=== PATIENT | female | born 1965 | race Caucasian/White ===

== ENCOUNTER 2017-09-27 15:22 | Emergency (ER) | payer SELFPAY ==
[2017-09-27 15:36] VITALS: BP 115/82; PULSE 98; RESP 18; TEMP 36.9; O2SAT 94; BMI 23.6
[2017-09-27 15:55] LABS: UTC Influenza A Antigen Negative (Negative); UTC Influenza B Antigen Negative (Negative)
--- NOTE | 2017-09-27 16:00 | HMH.EDUTC ---
[facility] [place] Clinical Impression: Tobacco abuse Acute bronchitis Qualifiers: Bronchitis organism: unspecified organism Qualified Code(s): J20.9 - Acute bronchitis, unspecified Acute conjunctivitis, bilateral Qualifiers: Acute conjunctivitis type: unspecified Qualified Code(s): H10.33 - Unspecified acute conjunctivitis, bilateral Right otitis media Qualifiers: Otitis media type: unspecified Qualified Code(s): H66.91 - Otitis media, unspecified, right ear Disposition: Home, Self-Care Condition on Discharge: Good Instructions: DI for Conjunctivitis, DI for Acute Bronchitis, DI for Otitis Media (Middle Ear Infection)-Child, How to Quit Tobacco Products Additional Instructions: Bronchitis * STOP SMOKING!!!! * start antibiotic today. Be sure to complete entire prescription even if feeling better. * Monitor Temp. Tylenol every 4 hours as needed no more then 5 times a day or 4000mg in 24 hours and/or ibuprofen every 6 hours as needed no more then 3200mg in 24 hours (as long as your primary care doctor has told you that it is ok to take both) for fever/aches/pain. ER if fever no less than 101 despite tylenol and ibuprofen * humidifier/vaporizer/hot steamy shower * Inhaler every 4-6 hours as needed like we discussed. If unsure how to use it, ask pharmacist to demonstrate how. Should help open airways and improve cough, wheezing, shortness of breath. * Mucinex during the day for your cough and cough suppressant only at night. Be sure to drink lots of water. Insurance may not cover a prescription of mucinex. Might be cheaper to get 400mg tablets and take 2 tablets morning, midday and evening all with lots of water. * Promethazine DM cough syrup will cause drowsiness. Use it only at night. No driving, operating machinery or caring for small children after taking it. * Start steroid today. Helps with inflammation therefore, cough and wheezing. Follow directions on package. Rvwd side effects. Pt reports they have taken them before. * If not improving, you will need a CXR at that points so follow up VERY important for new or worsening symptoms Follow up IMMEDIATELY for new or worsening symptoms OR no noticeable improvement over the next 48-72 hours. 911 for difficulty breathing. Eyes * Start antibiotic drops MONIQUE and use them as ordered at least 48 hours after symptoms resolve. As we discussed, if this is viral, they will not help. * Warm compresses * conjunctivitis (pink eye) can be contagious and spreads easily. Try to avoid touching the eye and if so, wash hands immediately. Frequently disinfecting surfaces the patient touches will help decrease the spread of conjunctivitis. * If this is bacterial, you should notice improvement typically within 24 hours but at least within 48 hours after starting antibiotic. If not, you need to follow up with your family doctor or your eye care provider, Dr. rincon. Ear infection * Start antibiotic MONIQUE (same one for your chest) and be sure to take as ordered for the FULL length of time although you should start to feel better in 24-48 hours. * Monitor Temp. Tylenol every 4 hours as needed no more then 5 times a day or 4000mg in 24 hours and/or ibuprofen every 6 hours as needed no more then 3200mg in 24 hours (as long as your primary care doctor has told you that it is ok to take both) for fever/aches/pain. ER if fever no less than 101 despite Tylenol and ibuprofen * Encourage fluids, water, Gatorade, PowerAde, pedialyte if infant/toddler/child * warm compress often helps when placed over ear * sleep elevated * Immediately for new or worsening symptoms, no noticeable improvement in 48-72 hours AND in 10-14 days to ensure ears are back to baseline. Be sure to return to [facility] or ER or primary care as we discussed above. Prescriptions: Albuterol Sulfate [Albuterol HFA Inhaler] 1 - 2 puffs IH Q4-6H PRN #1 inh PRN Reason: Shortness Of Breath Or Wheezing Azithromycin [Z-Devin 250mg Tab] 250 mg PO UD DOSE PK #6 t
--- NOTE | 2017-09-27 16:09 | ED_ITS ---
[facility] – [place] Disposition Clinical Impression: Tobacco abuse Acute bronchitis Qualifiers: Bronchitis organism: unspecified organism Qualified Code(s): J20.9 - Acute bronchitis, unspecified Acute conjunctivitis, bilateral Qualifiers: Acute conjunctivitis type: unspecified Qualified Code(s): H10.33 - Unspecified acute conjunctivitis, bilateral Right otitis media Qualifiers: Otitis media type: unspecified Qualified Code(s): H66.91 - Otitis media, unspecified, right ear Disposition: Home, Self-Care Condition on Discharge: Good Instructions: DI for Conjunctivitis, DI for Acute Bronchitis, DI for Otitis Media (Middle Ear Infection)-Child, How to Quit Tobacco Products Additional Instructions: Bronchitis * STOP SMOKING!!!! * start antibiotic today. Be sure to complete entire prescription even if feeling better. * Monitor Temp. Tylenol every 4 hours as needed no more then 5 times a day or 4000mg in 24 hours and/or ibuprofen every 6 hours as needed no more then 3200mg in 24 hours (as long as your primary care doctor has told you that it is ok to take both) for fever/aches/pain. ER if fever no less than 101 despite tylenol and ibuprofen * humidifier/vaporizer/hot steamy shower * Inhaler every 4-6 hours as needed like we discussed. If unsure how to use it, ask pharmacist to demonstrate how. Should help open airways and improve cough, wheezing, shortness of breath. * Mucinex during the day for your cough and cough suppressant only at night. Be sure to drink lots of water. Insurance may not cover a prescription of mucinex. Might be cheaper to get 400mg tablets and take 2 tablets morning, midday and evening all with lots of water. * Promethazine DM cough syrup will cause drowsiness. Use it only at night. No driving, operating machinery or caring for small children after taking it. * Start steroid today. Helps with inflammation therefore, cough and wheezing. Follow directions on package. Rvwd side effects. Pt reports they have taken them before. * If not improving, you will need a CXR at that points so follow up VERY important for new or worsening symptoms Follow up IMMEDIATELY for new or worsening symptoms OR no noticeable improvement over the next 48-72 hours. 911 for difficulty breathing. Eyes * Start antibiotic drops MONIQUE and use them as ordered at least 48 hours after symptoms resolve. As we discussed, if this is viral, they will not help. * Warm compresses * conjunctivitis (pink eye) can be contagious and spreads easily. Try to avoid touching the eye and if so, wash hands immediately. Frequently disinfecting surfaces the patient touches will help decrease the spread of conjunctivitis. * If this is bacterial, you should notice improvement typically within 24 hours but at least within 48 hours after starting antibiotic. If not, you need to follow up with your family doctor or your eye care provider, Dr. rincon. Ear infection * Start antibiotic MONIQUE (same one for your chest) and be sure to take as ordered for the FULL length of time although you should start to feel better in 24-48 hours. * Monitor Temp. Tylenol every 4 hours as needed no more then 5 times a day or 4000mg in 24 hours and/or ibuprofen every 6 hours as needed no more then 3200mg in 24 hours (as long as your primary care doctor has told you that it is ok to take both) for fever/aches/pain. ER if fever no less than 101 despite Tylenol and ibuprofen * Encourage fluids, water, Gatorade, PowerAde, pedialyte if infant/toddler/ child * warm compress often helps when placed over ear * sleep elevated * Immediately for new or worsening symptoms, no noticeable improvement in 48-72 hours AND in 10-14 days to en
== END 2017-09-27 16:32 | disposition home or self-care (01) ==
PROVIDERS: Emergency Provider Nurse Practitioner Family
DX: J20.9 Acute bronchitis, unspecified (principal); H10.33 Unspecified acute conjunctivitis, bilateral; H66.91 Otitis media, unspecified, right ear; J45.909 Unspecified asthma, uncomplicated; Z90.49 Acquired absence of other specified parts of digestive tract; F17.210 Nicotine dependence, cigarettes, uncomplicated
CPT/HCPCS: 87804; 99202

== ENCOUNTER 2020-08-31 13:37 | Emergency (ER) | payer MEDICAID, SELFPAY ==
[2020-08-31 13:49] VITALS: BP 144/90; PULSE 84; RESP 20; TEMP 36.6; O2SAT 98; BMI 24.5
--- NOTE | 2020-08-31 13:54 | HMH.EDUTC ---
[facility] – [place] Disposition Clinical Impression: Exposure to COVID-19 virus Disposition: Home, Self-Care Condition on Discharge: Good Instructions: Preventing the Spread of Coronavirus Discharge Instructions Additional Instructions: You have been tested for COVID19. Please isolate yourself as if you are positive until test results received. Referrals: Hamilton Aquino MD [Primary Care Provider] - Time of Disposition: 14:01 Medical Decision Making - Quinn Inquiry Pt receiving controlled substance: No Vital Signs: 08/31/20 13:49 Temperature 97.8 F Temperature Source Oral Pulse Rate [Radial] 84 Respiratory Rate 20 Blood Pressure [Right Arm] 144/90 H Blood Pressure Mean [Right Arm] 108 Blood Pressure Source [Right Arm] Automatic Cuff Blood Pressure Position [Right Arm] Sitting 02 Sat by Pulse Oximetry 98 Oxygen Delivery Method Room Air Orders (Tests/Meds): ORDERS Category Date Time Status Covid-19 Nasal PCR ([facility]) Routine Lab 08/31/20 13:41 Ordered [facility] [place] HPI - General Stated complaint: COVID TEST Time Seen by Provider: 08/31/20 13:54 Mode of Arrival: Ambulatory Source of Information: Patient Limitations: No Limitations Description of Symptoms (Recalled from Triage Doc. by RN): covid test HEENT Symptoms (Recalled from RN notes): No Resp Symptoms (Recalled from RN notes): No Skin Symptoms (Recalled from RN notes): No MS Symptoms (Recalled from RN notes): No Functional Status (Recalled from RN notes): wnl - History of Present Illness Provider Complaint: Patient is requesting COVID19 testing. She has not been directly exposed - her son in law has it and she has been around her daughter. She works at [employer] and wants to be sure. Onset (ago): day(s) (3) Relieving factors: none Exacerbating factors: none Associated symptoms: denies other symptoms Treatments prior to arrival: none - Related Data Previous Rx's Medication Instructions Recorded Doxycycline Hyclate [Doxycycline 100 mg PO Q12 10 Days #20 tab 10/26/19 Hyclate 100mg Tablet] Guaifenesin/Dextromethorphan 1 tab PO BID 10 Days #20 tab 10/26/19 [Mucinex Dm ER 1,200-60 mg Tab] predniSONE [Prednisone 20mg 20 mg PO BID 5 Days #10 tab 10/26/19 Tab] albuterol sulfate 90 mcg/actuation 2 puff INHALATION Q6HP PRN #1 inh 02/01/20 aerosol inhaler Allergies Allergy/AdvReac Type Severity Reaction Status Date / Time No Known Allergies Allergy Verified 09/27/17 15:40 - Worker's Comp Is this a Worker's Comp case?: No [facility] History - Hepatitis A Screen Drug use history?: No High risk sexual behaviors?: No History of sexually transmitted infection?: No Currently employed?: No Childcare worker?: No Do you have indoor plumbing?: Yes Do you have electricity?: Yes Attestation statement:: This patient has been screened for Hepatitis A risk factors. I have reviewed the patient's past medical history: Yes Medical History: Reports:: Asthma Denies:: Diabetes Mellitus Type 1, Diabetes Mellitus Type 2, Hypertension Other Surgeries: Yes: Tubal Ligation, Other (cholecystectomy) - Social History Smoking Status: Current every day smoker Tobacco Type: cigarettes # Packs/Day (cigarettes): 1 Alcohol Intake: never Occupational Status: other ROS Obtained: Yes All systems reviewed & no additional complaints Physical Exam - General General appearance: alert, in no apparent distress - Head Head exam: normocephalic - Eye Eye exam: Present: PERRL - ENT ENT exam: Present: normal oropharynx - Neck Neck exam: Present: full ROM - Chest Chest inspection: Present: symmetric chest wall rise - Respiratory Respiratory exam: Present: normal lung sounds bilaterally - Cardiovascular Cardiovascular exam: Present: regular rate, normal rhythm - Neurological Exam Neurological exam: Present: alert, oriented X3 - Psychiatric Psychiatric exam: Present: normal affect, normal mood - Skin Skin exam: Present: warm, dry, intac
[2020-08-31 14:23] VITALS: BP 144/90; PULSE 84; RESP 20; TEMP 36.6; O2SAT 98
== END 2020-08-31 14:23 | disposition home or self-care (01) ==
PROVIDERS: Emergency Provider Physician Assistant; PCP Emergency Medicine
DX: Z20.828 Contact with and (suspected) exposure to other viral communicable diseases (principal); J45.909 Unspecified asthma, uncomplicated; F17.210 Nicotine dependence, cigarettes, uncomplicated
CPT/HCPCS: 99201; U0003

== ENCOUNTER 2022-02-21 07:44 | Emergency (ER) | payer SELFPAY ==
[2022-02-21] VITALS (8 sets, daily range): BP systolic 142–176; BP diastolic 92–103; PULSE 74–100; RESP 13–24; TEMP 36.5–37; O2SAT 92–99; BMI 22.6
--- NOTE | 2022-02-21 07:53 | ECG_ITS ---
APPROVED REPORT Exam: Resting ECG HR:93 bpm ECG Measurements Heart Rate 93 AXES OR 175 P 81 QRSd 80 QRS -54 QT 326 T 68 QTc 377 Conclusion SINUS RHYTHM POSSIBLE LEFT ATRIAL ENLARGEMENT [-0.1mV P-WAVE IN V1/V2] LEFT AXIS DEVIATION [QRS AXIS < -30] ABNORMAL ECG UNCONFIRMED REPORT Electronically signed by : Jaron Acosta MD 02/21/2022 18:41:48
--- NOTE | 2022-02-21 07:56 | XR_ITS ---
PROCEDURE INFORMATION: Exam: XR Chest Exam date and time: 02/21/2022 8:13 AM Age: 56 years old Clinical indication: Shortness of breath; Additional info: SOB TECHNIQUE: Imaging protocol: Radiologic exam of the chest. Views: 2 views. COMPARISON: CR XR CHEST 2V 10/26/2019 10:48 AM FINDINGS: Lungs: Mild opacities in the right base may represent atelectasis or pneumonia.. Pleural spaces: Unremarkable. No pleural effusion. No pneumothorax. Heart/Mediastinum: Unremarkable. No cardiomegaly. Bones/joints: Unremarkable. IMPRESSION: Mild opacities in the right base may represent atelectasis or pneumonia..
--- NOTE | 2022-02-21 07:56 | HMH.EDGENADL ---
ED Disposition Clinical Impression: COPD exacerbation Pneumonia Qualifiers: Pneumonia type: due to unspecified organism Laterality: right Lung location: lower lobe of lung Qualified Code(s): J18.9 - Pneumonia, unspecified organism Disposition: Home, Self-Care Condition on Discharge: Fair Instructions: DI for Pneumonia -- Adult, DI for Chronic Obstructive Pulmonary Disease Additional Instructions: Additional instructions for PNEUMONIA: Take antibiotics as prescribed. See your physician as soon as possible for further evaluation. Return immediately if you have an uncontrollable fever greater than 102 degrees, difficulty breathing or shortness of breath, persistent vomiting, or severe chest pain. Albuterol inhaler and prednisone as prescribed. Prescriptions: Albuterol Sulfate [Proventil-HFA 90mcg/puff Inh] 1 - 2 puffs IH Q6HP PRN #1 each PRN Reason: Wheezing [facility] levoFLOXacin [Levaquin 750mg tablet] 750 mg PO DAILY #5 tab Transmission [facility]: [facility] predniSONE [Prednisone 20mg Tab] 20 mg PO BID #10 tab Transmission Status: [facility] Referrals: Hamilton Aquino MD [Primary Care Provider] - Forms: Work/School Release - Critical Care Critical Care Time: No Attestation: On , the high probability of a clinically significant, sudden or life threatening deterioration of the following system(s) required my full and direct attention, intervention and personal management. The time I documented below is in addition to time spent performing reported procedures but includes the following listed in this critical care notation. Medical Decision Making - Quinn Inquiry Pt receiving controlled substance: No Vital Signs: 02/21/22 07:45 02/21/22 07:49 02/21/22 08:18 Temperature 97.7 F Temperature Source Oral Pulse Rate 100 H 84 Pulse Rate [Radial] 98 H Respiratory Rate 24 20 14 Blood Pressure 176/100 H 174/103 H Blood Pressure [Right Arm] 176/100 H Blood Pressure Mean 141 127 Blood Pressure Mean [Right Arm] 125 Blood Pressure Position [Right Arm] Sitting 02 Sat by Pulse Oximetry 94 L 92 L 97 Oxygen Delivery Method Room Air 02/21/22 08:50 Temperature Temperature Source Pulse Rate 74 Pulse Rate [Radial] Respiratory Rate 13 Blood Pressure 142/97 H Blood Pressure [Right Arm] Blood Pressure Mean 126 Blood Pressure Mean [Right Arm] Blood Pressure Position [Right Arm] 02 Sat by Pulse Oximetry 99 Oxygen Delivery Method - Lab Data Lab Results 02/21/22 08:04: WBC 13.6 H, RBC 4.94, Hgb 15.4, Hct 46.4, MCV 94.0, MCH 31.2, MCHC 33.2, RDW 14.0, Plt Count 252, MPV 7.8, Neut % (Auto) 87.3 H, Lymph % (Auto) 5.0 L, Moody % (Auto) 3.6, Eos % (Auto) 2.9, Baso % (Auto) 1.2, Neut # (Auto) 11.9 H, Lymph # (Auto) 0.7, Moody # (Auto) 0.5, Eos # (Auto) 0.4, Baso # (Auto) 0.2 02/21/22 08:04: Sodium 136, Potassium 3.9, Chloride 102, Carbon Dioxide 29, Anion Gap 8.9, BUN 7, Creatinine 0.80, Estimated Creat Clear 67, Estimated GFR 74, Est GFR ( Amer) 89, Glucose 129 H, Calcium 9.4, Total Bilirubin 0.6, AST 26, ALT 18, Alkaline Phosphatase 78, Troponin I < 0.01, Total Protein 7.8, Albumin 4.3, Globulin 3.5 H, Albumin/Globulin Ratio 1.2 02/21/22 08:04: SARS-CoV-2 (PCR) Not detected, Influenza A Untype (PCR) Not detected, Influenza Type B (PCR) Not detected 02/21/22 08:16: Lactate 0.6 L Result diagrams: 02/21/22 08:04 02/21/22 08:04 Orders (Tests/Meds): ED MEDICATIONS Discontinued Medications Generic Name Dose Route Start Last Admin Trade Name Freq PRN Reason Stop Dose Admin Albuterol/Ipratropium 3 ml 02/21/22 08:16 02/21/22 08:16 Ipratropium/Albuterol 3 Ml [facility] 02/21/22 08:17 3 ml ONCE ONE Administration Albuterol/Ipratropium 3 ml 02/21/22 08:40 02/21/22 08:43 Ipratropium/Albuterol 3 Ml [facility] 06/19/22 08:41 3 ml ONCE ONE Administration Methylprednisolon
--- NOTE | 2022-02-21 08:06 | PC.NURSE ---
pt to RAD
--- NOTE | 2022-02-21 08:18 | PC.NURSE ---
Tech redrawing lactic due to lab rejecting specimen because of no labeling
[2022-02-21 08:21] LABS: Basophils # 0.2 K/mm3 (0-0.2); Basophils % 1.2 % (0.1-2.0); Eosinophils # 0.4 K/mm3 (0.0-0.4); Eosinophils % 2.9 % (0.1-12.0); Hematocrit 46.4 % (37.0-47.0); Hemoglobin 15.4 g/dL (12.2-16.2); Lymphocytes # 0.7 K/mm3 (0.7-4.5); Mean Corpuscular HGB Conc 33.2 g/dL (31.8-35.4); Mean Corpuscular Hemoglobin 31.2 pg (27.0-31.2); Mean Platelet Volume 7.8 fl (7.4-10.4); Monocytes # 0.5 K/mm3 (0.1-1.0); Monocytes % 3.6 % (1.7-9.3); Neutrophils # 11.9 K/mm3 (1.8-7.8); Neutrophils % 87.3 % (37.0-80.0); Platelet Count 252 K/mm3 (142-424); Red Blood Count 4.94 M/mm3 (4.20-5.40); White Blood Count 13.6 K/mm3 (4.8-10.8)
[2022-02-21 08:23] LABS: Chloride 102 mmol/L (98-107); Potassium 3.9 mmoL/L (3.5-5.1); Sodium 136 mmol/L (136-145)
[2022-02-21 08:26] LABS: Alanine Aminotransferase 18 U/L (12-78); Albumin Level 4.3 g/dl (3.5-5.0); Albumin/Globulin Ratio 1.2 (1.1-1.8); Alkaline Phosphatase 78 U/L (38-126); Anion Gap 8.9 mEq/L (5-15); Aspartate Amino Transferase 26 U/L (14-36); Bilirubin,Total 0.6 mg/dl (0.2-1.3); Blood Urea Nitrogen 7 mg/dl (7-17); Calcium 9.4 mg/dl (8.4-10.2); Carbon Dioxide 29 mmol/L (22.0-30.0); Coronavirus 19, PCR Not Detected (NotDetected); Creatinine Clearance Estimated 67 mL/min (50-200); Estimated Glomerular Filt Rate 74 ml/min (>60); GFR (African American) 89 ML/MIN (>60); Globulin 3.5 g/dL (1.3-3.2); Glucose 129 mg/dl (74-100); Influenza A, PCR Not Detected (NotDetected); Influenza B, PCR Not Detected (NotDetected); Total Protein,Serum 7.8 g/dl (6.3-8.2)
[2022-02-21 08:28] LABS: MANUAL DIFFERENTIAL MANUAL DIFFERENTIAL (MANUAL DIFF)
[2022-02-21 08:37] LABS: Lactic Acid 0.6 mmol/L (0.7-2.1)
[2022-02-21 08:44] LABS: Troponin I < 0.01 ng/ml (0.00-0.034)
--- NOTE | 2022-02-21 09:08 | PC.NURSE ---
pt resting, states some improvement with duoneb
--- NOTE | 2022-02-21 09:23 | PC.NURSE ---
rn in room
--- NOTE | 2022-02-21 09:39 | PC.NURSE ---
antibiotics infusing pt offers no c/o at present
--- NOTE | 2022-02-21 09:47 | PC.NURSE ---
turned TV on for pt
[2022-02-21 10:09] LABS: Eosinophils % 2 % (0-3); Lymphocytes % 11 % (10-50); Monocytes % 2 % (2-9); Neutrophils % 83 % (42-76); Platelet Estimate Normal; RBC Morphology Normal; Total Cells Counted 100
== END 2022-02-21 10:17 | disposition home or self-care (01) ==
PROVIDERS: Emergency Provider Emergency Medicine; PCP Emergency Medicine
DX: J18.9 Pneumonia, unspecified organism (principal); J44.0 Chronic obstructive pulmonary disease with (acute) lower respiratory infection; J44.1 Chronic obstructive pulmonary disease with (acute) exacerbation; F17.210 Nicotine dependence, cigarettes, uncomplicated
CPT/HCPCS: 71046; 80053; 83605; 84484; 85007; 85025; 87040; 93005; 96365; 96375; 99284; C9803; J1956; U0003; U0005

== ENCOUNTER 2025-05-11 05:26 | Observation (INO) | payer SELFPAY ==
[2025-05-11] VITALS (15 sets, daily range): BP systolic 99–184; BP diastolic 75–126; PULSE 70–104; RESP 12–26; TEMP 36.1–36.9; O2SAT 90–100; BMI 20.7; BMI 19.5
--- NOTE | 2025-05-11 05:35 | ECG_ITS ---
APPROVED REPORT Exam: Resting ECG HR:93 bpm ECG Measurements Heart Rate 93 AXES WV 132 P 88 QRSd 96 QRS -79 QT 412 T 265 QTc 462 Conclusion SINUS RHYTHM LEFT ANTERIOR FASCICULAR BLOCK [QRS AXIS <= -45, QR IN I, RS IN II] LEFT VENTRICULAR HYPERTROPHY AND ST-T CHANGE [VOLTAGE CRITERIA PLUS ST/T ABNORMALITY] POSSIBLE SEPTAL MYOCARDIAL INFARCTION , PROBABLY OLD [30 ms Q WAVE IN V1/V2] ABNORMAL ECG No STEMI Electronically signed by : MARÍA SANDHU, 05/12/2025 05:14:14
--- NOTE | 2025-05-11 05:37 | CT_ITS ---
PROCEDURE INFORMATION: Exam: CTA Chest With Contrast Exam date and time: 05/11/2025 6:21 AM Age: 59 years old Clinical indication: Cough and shortness of breath; Additional info: Tachy cough SOA TECHNIQUE: Imaging protocol: Computed tomographic angiography of the chest with contrast. Exam focused on the arteries. 3D rendering (Not supervised by radiologist): MIP and/or 3D reconstructed images were created by the technologist. Radiation optimization: All CT scans at this facility use at least one of these dose optimization techniques: automated exposure control; mA and/or kV adjustment per patient size (includes targeted exams where dose is matched to clinical indication); or iterative reconstruction. Contrast material: ISOVUE; Contrast volume: 80 ml; Contrast route: INTRAVENOUS (IV); COMPARISON: CR XR CHEST 2V 02/21/2022 8:13 AM FINDINGS: Pulmonary arteries: No PE. No evidence of cardiac strain. Aorta: Unremarkable. No aortic aneurysm. No aortic dissection. Thyroid: Thyroid hyperplasia, with few scattered calcified and noncalcified nodules. Likely goiters. No further follow-up needed. Lungs: Calcified granulomas in the right upper lobe and right lower lobe. No distinct nodules or infiltrates. Apical predominant moderate centrilobular emphysema. Pleural spaces: Unremarkable. No pneumothorax. No pleural effusion. Heart: See Pulmonary arteries finding. Lymph nodes: Several calcified mediastinal and right hilar and subcarinal nodes from prior granulomatous infection. Gallbladder and biliary ducts: Status post cholecystectomy. Mild extrahepatic biliary dilatation. Adrenal glands: Left adrenal mass measuring 3.8 x 2.9 cm axial, attenuating at 3 Hounsfield units. Most suggestive of adenoma. No further follow-up needed unless clinically warranted. Bones/joints: Unremarkable. No acute fracture. Soft tissues: Unremarkable. IMPRESSION: 1. No PE. No evidence of cardiac strain. 2. Apical predominant moderate centrilobular emphysema. 3. No distinct nodules or infiltrates. COMMENTS: 1. Consistent with the [employer]'s Incidental Findings Committee white paper (J Am [employer]iol 2015): In patients aged 35 years and older with an incidental thyroid nodule equal to or greater than 1.[address], MRI or extrathyroidal US, further evaluation with dedicated thyroid US is recommended for patients with normal life expectancy and without comorbidities. For smaller nodules without suspicious features, no further evaluation or follow up is recommended. 2. The presence of pulmonary emphysema on CT is an independent risk factor for lung cancer. In the absence of a history or active diagnosis of lung cancer, it is recommended that this patient with emphysema be evaluated for enrollment in a low dose CT lung cancer screening program. 3. Consistent with the [employer] [employer]'s Incidental Findings Committee white paper (J [employer]iol 2017): Any incidental adrenal lesion less than 1 cm is likely benign. No follow-up imaging is recommended for these lesions per consensus recommendations based on imaging criteria. Further lab evaluation could be pursued if warranted based on clinical findings.
[2025-05-11] MEDS: IPRATROPIUM/ALBUTEROL 3 ML NEB 9 ML IH (05:46)
[2025-05-11] MEDS: METHYLPREDNISOLONE SOD SUCC 125MG VIAL 125 MG IV (05:46)
[2025-05-11] MEDS: ASPIRIN 81MG CHEWABLE TABLET 324 MG PO (05:46)
--- NOTE | 2025-05-11 05:47 | [facility].EDCP ---
Discharge Plan Disposition Patient Disposition: Admitted Condition: Fair Clinical Impressions Clinical Impression: Chest pain, COPD (chronic obstructive pulmonary disease), Hyperbilirubinemia, Acute non-ST elevation myocardial infarction (NSTEMI) Discharge ED Provider: Tong Gray <Tong Gray MD - Last Filed: 05/11/25 07:10> General Chief Complaint: Shortness of Breath/Dyspnea Stated Complaint: trouble breathing, dull chest pain Time Seen by Provider: 05/11/25 05:37 Mode of Arrival: Ambulatory Source of Information: Patient Description of Symptoms (Recalled from ER Triage Doc. by RN): Pt presents to the ed for evaluaiton of SOA that began approx 1 month ago with recent visits to [facility] and being told bronchitis , and a productive cough that began approx 1 week ago. Pt reports pain to left shoulder with epigastric pain that began 1 day ago. Pt denies N/V History of Present Illness HPI narrative: 59-year-old female who is a daily smoker with a history of COPD presents to the ER for shortness of breath, productive cough, left-sided chest pain radiating to left shoulder. Patient also has mild epigastric discomfort but no nausea or vomiting. Patient has a known hiatal hernia. She states in the last month her shortness of breath seems to be getting progressively worse. She states she had an episode like this approximately 1 month ago where she required inhaler, steroids, antibiotics from urgent care. She states her cough has gotten worse in the last week and especially more productive in the last 3 to 4 days. She also reports she is having pain towards her left shoulder that seems to be worse when coughing. She has mild discomfort in the epigastric area as well without any nausea or vomiting. She believes this is from her hiatal hernia or from coughing. No fevers or chills, no swelling in the feet or legs, no diarrhea or constipation, no headaches or dizziness, no other complaints or concerns. Related Data Previous Rx's ?Medication ?Instructions ?Recorded albuterol sulfate 90 mcg/actuation 2 puff inhalation Q6HP PRN 02/01/20 aerosol inhaler Shortness Of Breath Or Wheezing #1 inh albuterol sulfate 90 mcg/actuation 2 puff inhalation Q6H PRN 03/07/25 aerosol inhaler (Ventolin HFA) shortness of breath or wheezing #6.7 grams azithromycin 250 mg tablet See Rx Instructions PO .COMPLEX #6 03/07/25 (Zithromax Z-Devin) tabs prednisone 20 mg tablet 20 mg PO BID #10 tabs 03/07/25 Allergies Allergy/AdvReac Type Severity Reaction Status Date / Time No Known Allergies Allergy Verified 03/07/25 18:18 PFSH <Tong Gray MD - Last Filed: 05/11/25 07:10> [facility] Disclaimer: The information contained in this section may have been updated after the patient was seen, as this information can be updated by other users. Social History Smoking Status: Current every day smoker tobacco type: cigarettes packs per day: 1 alcohol intake: never current occupational status: other Travel in the last 8 weeks?: None Have you lived/traveled outside [place] in past 30 days?: No Contact w/someone who lives/traveled outside US past 30 days?: No Exposure to someone with infectious disease in past 14 days?: No Do you have a fever (greater than 100.4 F or 38 C)?: No Have you tested positive for COVID-19?: No Exposed to someone with COVID-19 in past 14 days?: No Do you have a sore throat?: No Do you have a cough?: Yes Do you have any weakness?: No Do you have any diarrhea?: No Are you experiencing any unusual bleeding?: No Do you have any muscle aches/pain?: No Do you have any abdominal pain?: No Are you experiencing loss of taste or smell?: No Other Medical History Have you received the Flu Vaccine for this season: No Have you received the Pneumonia Vaccine: No <Tong Gray MD - Last Filed: 05/11/25 07:10> ROS Obtained: Yes Systems reviewed as appropriate & no additional complaints except as documented Per HPI Physical Exam <Tong Gray MD - Last Filed: 05/11/25 07:10> General General appearance: alert and in no apparent distress Head Head exam: atraumatic and normocephalic Eye Eye exam: Present PERRL and EOMI ENT ENT exam: Present mucous membranes moist Neck Neck exam: Present normal inspection and full ROM Chest Chest inspection: Present symmetric chest wall rise Respiratory Respiratory exam: Present wheezes and prolonged expiratory phase (Mildly); Absent normal lung sounds bilaterally (Diminished throughout end expiratory wheezes), respiratory distress, stridor or accessory muscle use Cardiovascular Cardiovascular exam: Present normal rhythm and tachycardia (Mild, rate in the low 100s during my exam) Abdominal Exam Abdominal exam: Present soft; Absent distention, tenderness, guarding or rebound Extremities Exam Extremities exam: Present full ROM and normal capillary refill; Absent edema Neurological Exam Neurological exam: Present alert and oriented X3; Absent motor sensory deficit Psychiatric Psychiatric exam: Present normal affect and normal mood Skin Skin exam: Present warm and dry HEART Score <Tong Gray MD - Last Filed: 05/11/25 07:10> HEART Score HEART Score assessment performed?: Yes History (anamnesis): Moderately suspicious ECG: Non-specific disturbance Age: 45-65 years Risk factors: 1-2 risk factors Troponin: > 3x normal limit HEART Score: 6 <Juan R Seals DO - Last Filed: 05/11/25 10:10> HEART Score HEART Score: 6 Procedures <Tong Gray MD - Last Filed: 05/11/25 07:10> Miscellaneous Procedure Procedure Performed: Limited Cardiac Ultrasound Indication: Shortness of breath, intermittent chest pain Identified cardiac views: -Cardiac apical four-chamber -Cardiac subxiphoid Parasternal short and long axis were not able to be obtained secondary to poor acoustic windows Findings: Cardiac activity present with no gross wall motion abnormality, no pericardial effusion, no right heart strain, patient has thickening of the left ventricle as well as significant septal thickening that appears to likely be causing outflow obstruction Impression: -Cardiac activity present with no gross wall motion abnormality, no pericardial effusion, no right heart strain, patient has thickening of the left ventricle as well as significant septal thickening that appears to likely be causing outflow obstruction Images were saved to permanent archive The study was technically adequate CPT: 50722 This study was performed by me, and I personally interpreted all images/videos. Based on my clinical judgement, these images were adequate and did not necessitate further imaging. Critical Care <Tong Gray MD - Last Filed: 05/11/25 07:10> Critical Care Time Critical Care Time: No Medical Decision Making <Tong Gray MD - Last Filed: 05/11/25 07:10> Medical Records Medical records reviewed: Yes I reviewed the patient's medical records. MR Comment: [facility] records demonstrate patient was recently treated for COPD exacerbation Quinn Inquiry Pt receiving controlled substance: No Vital Signs Vital Signs: 05/11/25 05:33 05/11/25 06:00 05/11/25 06:37 Temperature 98.1 F Temperature Source Oral Pulse Rate 78 93 H Pulse Rate [Radial] 104 H Respiratory Rate 26 H 17 Blood Pressure 136/95 H 162/101 H Blood Pressure [Right Arm] 184/126 H Blood Pressure Mean [Right Arm] 145 Blood Pressure Position [Right Arm] Sitting 02 Sat by Pulse Oximetry 92 L 100 90 L Oxygen Delivery Method Room Air 05/11/25 07:00 05/11/25 07:30 05/11/25 08:00 Temperature Temperature Source Pulse Rate 91 H 101 H 98 H Pulse Rate [Radial] Respiratory Rate 19 15 19 Blood Pressure 159/101 H 146/98 H 147/96 H Blood Pressure [Right Arm] Blood Pressure Mean [Right Arm] Blood Pressure Position [Right Arm] 02 Sat by Pulse Oximetry 92 L 92 L 92 L Oxygen Delivery Method 05/11/25 08:29 05/11/25 08:30 05/11/25 08:58 Temperature 98.1 F Temperature Source Pulse Rate 91 H 82 Pulse Rate [Radial] Respiratory Rate 15 18 Blood Pressure 138/100 H 148/94 H Blood Pressure [Right Arm] Blood Pressure Mean [Right Arm] Blood Pressure Position [Right Arm] 02 Sat by Pulse Oximetry 91 L Oxygen Delivery Method Room Air Lab Data Labs: Lab Results 05/11/25 05:37: VBG pH 7.38, VBG pCO2 42.4, VBG pO2 58.4 H, VBG HCO3 24.7, VBG Total CO2 26.0, VBG O2 Saturation 91.6 H, VBG Base Excess -0.4, VBG Lactic Acid 1.3 05/11/25 05:40: WBC 10.9 H, RBC 5.24, Hgb 15.7, Hct 47.9 H, MCV 91.4, MCH 30.0, MCHC 32.8, RDW 12.9, Plt Count 211, MPV 9.4, Neut % (Auto) 81.9 H, Lymph % (Auto) 8.6 L, Barbour % (Auto) 6.8, Eos % (Auto) 1.5, Baso % (Auto) 0.7, Neut # (Auto) 8.9 H, Lymph # (Auto) 0.9, Barbour # (Auto) 0.7, Eos # (Auto) 0.2, Baso # (Auto) 0.1, PT 11.8, INR 1.07, Sodium 134 L, Potassium 3.9, Chloride 100, Carbon Dioxide 29, Anion Gap 8.9, BUN 10, Creatinine 0.80, Estimated Creat Clear 59, Estimated GFR 73, Est GFR ( Amer) 89, Glucose 173 H, Calcium 9.4, Total Bilirubin 1.4 H, AST 25, ALT 12, Alkaline Phosphatase 76, Troponin I 0.45 H, NT-Pro-B Natriuret Pep 7570 H, Total Protein 7.6, Albumin 4.2, Globulin 3.4 H, Albumin/Globulin Ratio 1.2, Lipase 42 05/11/25 05:40 05/11/25 05:40 Response Orders (Tests/Meds): ED MEDICATIONS Generic Name Dose Route Start Last Admin Trade Name Freq PRN Reason Stop Dose Admin Enoxaparin Sodium 45 mg 05/11/25 10:00 Enoxaparin 60mg/0.6ml Syringe SUBCUT 06/10/25 09:59 Q12 ARUN Discontinued Medications Generic Name Dose Route Start Last Admin Trade Name Freq PRN Reason Stop Dose Admin Albuterol/Ipratropium 9 ml 05/11/25 05:37 05/11/25 05:46 Ipratropium/Albuterol 3 Ml Neb IH 05/11/25 05:38 9 ml ONCE ONE Administration Aspirin 324 mg 05/11/25 05:37 05/11/25 05:46 Aspirin 81mg Chewable Tablet PO 05/11/25 05:38 324 mg ONCE ONE Administration Iopamidol 80 ml 05/11/25 06:35 05/11/25 06:36 Iopamidol-370 (76%);100ml Bottle IV 05/11/25 06:36 80 ml ONCE ONE Administration Methylprednisolone Sodium Succinate 125 mg 05/11/25 05:37 05/11/25 05:46 Methylprednisolone Sod Succ 125mg Vial IV 05/11/25 05:38 125 mg ONCE ONE Administration Sodium Chloride 10 ml 05/11/25 06:35 05/11/25 06:36 Sodium Chloride 0.9% 10ml Syr (Rad Only) IV 05/11/25 06:36 10 ml ONCE ONE Administration Sodium Chloride 50 ml 05/11/25 06:35 05/11/25 06:36 0.9 % Sodium Chloride 50 Ml Vial IV 05/11/25 06:36 50 ml ONCE ONE Administration ORDERS Category Date Time Status CT angio chest PE protocol Stat Cat Scan 05/11/25 05:37 Completed POCUS Point of Care (ER Only) Stat Exams 05/11/25 06:41 Completed Complete Blood Count Auto Diff Stat Lab 05/11/25 05:40 Completed Comprehensive Metabolic Panel Stat Lab 05/11/25 05:40 Completed HIV Combo Stat Lab 05/11/25 05:40 Received Hepatitis C Ab Qual. W/ RFX Stat Lab 05/11/25 05:40 Received Lipase Stat Lab 05/11/25 05:40 Completed NT Pro Brain Natriuretic Pep. Stat Lab 05/11/25 05:40 Completed Prothrombin Time INR Stat Lab 05/11/25 05:40 Completed Troponin I Q3H Lab 05/11/25 08:35 Completed Troponin I Q3H Lab 05/11/25 11:45 Ordered Troponin I Stat Lab 05/11/25 05:40 Completed VBG [Venous Blood Gas] Stat RT 05/11/25 05:37 Completed MDM Narrative Medical Decision Narrative: In summary, this 59-year-old female with comorbidities described in the HPI as well as social determinants of health including being a daily smoker which complicate her presentation today presents to the emergency department today with shortness of breath, cough, left-sided chest pain, upper abdominal pain. On initial evaluation patient is mildly tachycardic and hypertensive, afebrile, diminished breath sounds throughout with end expiratory wheezing, mildly prolonged expiratory phase but no acute respiratory distress, no accessory muscle use, abdominal exam is benign despite patient complaining of mild epigastric discomfort with coughing, no peripheral edema, normal capillary refill, remainder of exam benign. Differential diagnosis includes but is not limited to ACS, PE, pneumonia, COPD exacerbation, viral syndrome, pneumothorax, musculoskeletal pain, among others. Based on these concerns, I ordered hematologic and serum labs, cardiac workup, CTA PE. ECG personally interpreted demonstrates normal sinus rhythm, rate 93, normal [place], borderline prolonged QTc, Q waves and T wave inversions in the inferior leads as well as T-wave inversions in V4 through V6 concerning for ischemia/strain, no STEMI. Patient received DuoNebs, aspirin, Solu-Medrol initially for treatment. Labs personally reviewed demonstrate VBG with pH 7.38, no hypercarbia, lactic normal at 1.3, mild leukocytosis, no anemia, normal platelets, CMP nonactionable, mild hyperbilirubinemia which patient was informed of and instructed to follow-up with her primary care doctor. On reassessment after completing DuoNebs patient reports her breathing is slightly more comfortable. She does have improved air movement. She is still having wheezing. No respiratory distress. Repeat ECG performed and personally interpreted is unchanged from previous, sinus rhythm, rate 88, downgoing complexes and T wave inversions in the inferior leads as well as T wave inversions in leads V4 through V6 concerning for ischemia/strain, no STEMI, patient does have LVH. Patient was taken to CT scan, while in CT, lab called with critical value of troponin of 0.45. I personally interpreted CTA PE which does not demonstrate large PE or infiltrate, radiology read pending. With these results I reached out to Dr. Rodriguez. I suspect the troponin elevation is NSTEMI. She does also have elevated BNP. While awaiting a callback from Dr. Rodriguez I performed [id number] bedside ultrasound which demonstrates no pericardial effusion, no gross wall motion abnormality, patient has evidence of LVH and abnormal septal thickening that appears that I am concerned is causing outflow obstruction. See procedure note for details. Patient is stating she likely does not want to stay even though I am recommending admission for continued workup. She is willing to hear from cardiology and get their recommendations before leaving. Still awaiting a callback from cardiology at this time despite multiple attempts to contact Dr. Rodriguez. Patient handed off to Dr. Seals in stable condition pending cardiology consult. <Juan R Seals, - Last Filed: 05/11/25 10:10> Quinn Inquiry Quinn was queried for this patient: No Vital Signs Vital Signs: 05/11/25 05:33 05/11/25 06:00 05/11/25 06:37 Temperature 98.1 F Temperature Source Oral Pulse Rate 78 93 H Pulse Rate [Radial] 104 H Respiratory Rate 26 H 17 Blood Pressure 136/95 H 162/101 H Blood Pressure [Right Arm] 184/126 H Blood Pressure Mean [Right Arm] 145 Blood Pressure Position [Right Arm] Sitting 02 Sat by Pulse Oximetry 92 L 100 90 L Oxygen Delivery Method Room Air 05/11/25 07:00 05/11/25 07:30 05/11/25 08:00 Temperature Temperature Source Pulse Rate 91 H 101 H 98 H Pulse Rate [Radial] Respiratory Rate 19 15 19 Blood Pressure 159/101 H 146/98 H 147/96 H Blood Pressure [Right Arm] Blood Pressure Mean [Right Arm] Blood Pressure Position [Right Arm] 02 Sat by Pulse Oximetry 92 L 92 L 92 L Oxygen Delivery Method 05/11/25 08:29 05/11/25 08:30 05/11/25 08:58 Temperature 98.1 F Temperature Source Pulse Rate 91 H 82 Pulse Rate [Radial] Respiratory Rate 15 18 Blood Pressure 138/100 H 148/94 H Blood Pressure [Right Arm] Blood Pressure Mean [Right Arm] Blood Pressure Position [Right Arm] 02 Sat by Pulse Oximetry 91 L Oxygen Delivery Method Room Air Lab Data Labs: Lab Results 05/11/25 05:37: VBG pH 7.38, VBG pCO2 42.4, VBG pO2 58.4 H, VBG HCO3 24.7, VBG Total CO2 26.0, VBG O2 Saturation 91.6 H, VBG Base Excess -0.4, VBG Lactic Acid 1.3 05/11/25 05:40: WBC 10.9 H, RBC 5.24, Hgb 15.7, Hct 47.9 H, MCV 91.4, MCH 30.0, MCHC 32.8, RDW 12.9, Plt Count 211, MPV 9.4, Neut % (Auto) 81.9 H, Lymph % (Auto) 8.6 L, Barbour % (Auto) 6.8, Eos % (Auto) 1.5, Baso % (Auto) 0.7, Neut # (Auto) 8.9 H, Lymph # (Auto) 0.9, Barbour # (Auto) 0.7, Eos # (Auto) 0.2, Baso # (Auto) 0.1, PT 11.8, INR 1.07, Sodium 134 L, Potassium 3.9, Chloride 100, Carbon Dioxide 29, Anion Gap 8.9, BUN 10, Creatinine 0.80, Estimated Creat Clear 59, Estimated GFR 73, Est GFR ( Amer) 89, Glucose 173 H, Calcium 9.4, Total Bilirubin 1.4 H, AST 25, ALT 12, Alkaline Phosphatase 76, Troponin I 0.45 H, NT-Pro-B Natriuret Pep 7570 H, Total Protein 7.6, Albumin 4.2, Globulin 3.4 H, Albumin/Globulin Ratio 1.2, Lipase 42 Response Orders (Tests/Meds): ED MEDICATIONS Generic Name Dose Route Start Last Admin Trade Name Felicia PRN Reason Stop Dose Admin Enoxaparin Sodium 45 mg 05/11/25 10:00 Enoxaparin 60mg/0.6ml Syringe SUBCUT 06/10/25 09:59 Q12 ARUN Discontinued Medications Generic Name Dose Route Start Last Admin Trade Name Felicia PRN Reason Stop Dose Admin Albuterol/Ipratropium 9 ml 05/11/25 05:37 05/11/25 05:46 Ipratropium/Albuterol 3 Ml Neb IH 05/11/25 05:38 9 ml ONCE ONE Administration Aspirin 324 mg 05/11/25 05:37 05/11/25 05:46 Aspirin 81mg Chewable Tablet PO 05/11/25 05:38 324 mg ONCE ONE Administration Iopamidol 80 ml 05/11/25 06:35 05/11/25 06:36 Iopamidol-370 (76%);100ml Bottle IV 05/11/25 06:36 80 ml ONCE ONE Administration Methylprednisolone Sodium Succinate 125 mg 05/11/25 05:37 05/11/25 05:46 Methylprednisolone Sod Succ 125mg Vial IV 05/11/25 05:38 125 mg ONCE ONE Administration Sodium Chloride 10 ml 05/11/25 06:35 05/11/25 06:36 Sodium Chloride 0.9% 10ml Syr (Rad Only) IV 05/11/25 06:36 10 ml ONCE ONE Administration Sodium Chloride 50 ml 05/11/25 06:35 05/11/25 06:36 0.9 % Sodium Chloride 50 Ml Vial IV 05/11/25 06:36 50 ml ONCE ONE Administration ORDERS Category Date Time Status CT angio chest PE protocol Stat Cat Scan 05/11/25 05:37 Completed POCUS Point of Care (ER Only) Stat Exams 05/11/25 06:41 Completed Complete Blood Count Auto Diff Stat Lab 05/11/25 05:40 Completed Comprehensive Metabolic Panel Stat Lab 05/11/25 05:40 Completed HIV Combo Stat Lab 05/11/25 05:40 Received Hepatitis C Ab Qual. W/ RFX Stat Lab 05/11/25 05:40 Received Lipase Stat Lab 05/11/25 05:40 Completed NT Pro Brain Natriuretic Pep. Stat Lab 05/11/25 05:40 Completed Prothrombin Time INR Stat Lab 05/11/25 05:40 Completed Troponin I Q3H Lab 05/11/25 08:35 Completed Troponin I Q3H Lab 05/11/25 11:45 Ordered Troponin I Stat Lab 05/11/25 05:40 Completed VBG [Venous Blood Gas] Stat RT 05/11/25 05:37 Completed MDM Narrative Medical Decision Narrative: In summary, this 59-year-old female with comorbidities described in the HPI as well as social determinants of health including being a daily smoker which complicate her presentation today presents to the emergency department today with shortness of breath, cough, left-sided chest pain, upper abdominal pain. On initial evaluation patient is mildly tachycardic and hypertensive, afebrile, diminished breath sounds throughout with end expiratory wheezing, mildly prolonged expiratory phase but no acute respiratory distress, no accessory muscle use, abdominal exam is benign despite patient complaining of mild epigastric discomfort with coughing, no peripheral edema, normal capillary refill, remainder of exam benign. Differential diagnosis includes but is not limited to ACS, PE, pneumonia, COPD exacerbation, viral syndrome, pneumothorax, musculoskeletal pain, among others. Based on these concerns, I ordered hematologic and serum labs, cardiac workup, CTA PE. ECG personally interpreted demonstrates normal sinus rhythm, rate 93, normal [place], borderline prolonged QTc, Q waves and T wave inversions in the inferior leads as well as T-wave inversions in V4 through V6 concerning for ischemia/strain, no STEMI. Patient received DuoNebs, aspirin, Solu-Medrol initially for treatment. Labs personally reviewed demonstrate VBG with pH 7.38, no hypercarbia, lactic normal at 1.3, mild leukocytosis, no anemia, normal platelets, CMP nonactionable, mild hyperbilirubinemia which patient was informed of and instructed to follow-up with her primary care doctor. On reassessment after completing DuoNebs patient reports her breathing is slightly more comfortable. She does have improved air movement. She is still having wheezing. No respiratory distress. Repeat ECG performed and personally interpreted is unchanged from previous, sinus rhythm, rate 88, downgoing complexes and T wave inversions in the inferior leads as well as T wave inversions in leads V4 through V6 concerning for ischemia/strain, no STEMI, patient does have LVH. Patient was taken to CT scan, while in CT, lab called with critical value of troponin of 0.45. I personally interpreted CTA PE which does not demonstrate large PE or infiltrate, radiology read pending. With these results I reached out to Dr. Rodriguez. I suspect the troponin elevation is NSTEMI. She does also have elevated BNP. While awaiting a callback from Dr. Rodriguez I performed [id number] bedside ultrasound which demonstrates no pericardial effusion, no gross wall motion abnormality, patient has evidence of LVH and abnormal septal thickening that appears that I am concerned is causing outflow obstruction. See procedure note for details. Patient is stating she likely does not want to stay even though I am recommending admission for continued workup. She is willing to hear from cardiology and get their recommendations before leaving. Still awaiting a callback from cardiology at this time despite multiple attempts to contact Dr. Rodriguez. Patient handed off to Dr. Seals in stable condition pending cardiology consult. Juan R Seals, DO I received care of this patient from Dr. Gray. I did obtain independent history from the patient and she basically tells me that she has been having left-sided chest pain that is radiating into the left side of her neck. At the time of my evaluation she is now asymptomatic. Dr. Gray already treated the patient with 324 mg of aspirin. Her EKG showed very concerning T wave inversions. Her troponin christina from undetectably low to 0.4. This is concerning for an NSTEMI. At the time of shift change we were pending consultation with Dr. Rodriguez. Dr. Rodriguez requested that we admit the patient to the internal medicine service and initiate Lovenox therapy. If she is to develop recurrent chest pain that he will consider taking her to the [facility] for cardiac catheterization. I had an interactive discussion with Dr. Loc Monsivais of the internal medicine service who has agreed to evaluate the patient the emergency department. After our discussion of their evaluation they have agreed to admit the patient to their service and accept primary responsibility of the patient moving forward.
[2025-05-11 05:50] LABS: Lactate Venous 1.3 mmol/L (0.4-2.0); VBG HCO3 24.7 mmol/L (23-30); VBG PCO2 42.4 mmol/L (35-51); VBG PH 7.38 mmol/L (7.31-7.41); VBG PO2 58.4 mmol/L (28-40)
[2025-05-11 05:55] LABS: Hematocrit 47.9 % (37.0-47.0); Hemoglobin 15.7 g/dL (12.2-16.2); Immature Granulocytes % 0.5 %; Mean Corpuscular HGB Conc 32.8 g/dL (31.8-35.4); Mean Corpuscular Hemoglobin 30.0 pg (27.0-31.2); Mean Corpuscular Volume 91.4 fl (81-99); Nucleated Red Blood Cells % 0 %; Platelet Count 211 K/mm3 (142-424); Red Blood Count 5.24 M/mm3 (4.20-5.40); Red Cell Distribution Width-SD 43.5 fL; White Blood Count 10.9 K/mm3 (4.8-10.8)
[2025-05-11 06:00] LABS: Albumin Level 4.2 g/dl (3.5-5.0); Chloride 100 mmol/L (98-107); Sodium 134 mmol/L (136-145)
[2025-05-11 06:01] LABS: Potassium 3.9 mmoL/L (3.5-5.1)
[2025-05-11 06:02] LABS: INR 1.07 (0.9-1.1); Prothrombin Time 11.8 seconds (10.1-12.5)
[2025-05-11 06:03] LABS: Alanine Aminotransferase 12 U/L (12-78); Albumin/Globulin Ratio 1.2 (1.1-1.8); Alkaline Phosphatase 76 U/L (38-126); Anion Gap 8.9 mEq/L (5-15); Aspartate Amino Transferase 25 U/L (14-36); Bilirubin,Total 1.4 mg/dl (0.2-1.3); Blood Urea Nitrogen 10 mg/dl (7-17); Carbon Dioxide 29 mmol/L (22.0-30.0); Creatinine Clearance Estimated 59 mL/min (50-200); Creatinine,Serum 0.80 mg/dl (0.52-1.04); Estimated Glomerular Filt Rate 73 ml/min (>60); GFR (African American) 89 ML/MIN (>60); Globulin 3.4 g/dL (1.3-3.2); Total Protein,Serum 7.6 g/dl (6.3-8.2)
[2025-05-11 06:04] LABS: Calcium 9.4 mg/dl (8.4-10.2); Glucose 173 mg/dl (74-100)
[2025-05-11 06:08] LABS: Lipase 42 U/L (23-300)
[2025-05-11 06:13] LABS: NT Pro Brain Natriuretic Pep. 7570 pg/mL (0-125)
--- NOTE | 2025-05-11 06:20 | ECG_ITS ---
APPROVED REPORT Exam: Resting ECG HR:88 bpm ECG Measurements Heart Rate 88 AXES NJ 132 P 88 QRSd 101 QRS -81 QT 437 T 266 QTc 483 Conclusion SINUS RHYTHM POSSIBLE RIGHT VENTRICULAR CONDUCTION DELAY [RSR (QR) IN V1/V2] LEFT ANTERIOR FASCICULAR BLOCK [QRS AXIS <= -45, QR IN I, RS IN II] LEFT VENTRICULAR HYPERTROPHY AND ST-T CHANGE [VOLTAGE CRITERIA PLUS ST/T ABNORMALITY] POSSIBLE SEPTAL MYOCARDIAL INFARCTION , PROBABLY OLD [30 ms Q WAVE IN V1/V2] ABNORMAL ECG No STEMI Electronically signed by : MARÍA SANDHU, 05/12/2025 05:14:30
[2025-05-11 06:22] LABS: Troponin I 0.45 ng/ml (0.00-0.034)
--- NOTE | 2025-05-11 06:23 | PC.NURSE ---
critical called from MD zen notified
[2025-05-11] MEDS: 0.9 % SODIUM CHLORIDE 50 ML VIAL IV (06:36)
[2025-05-11] MEDS: SODIUM CHLORIDE 0.9% 10ML SYR (RAD ONLY) 10 ML IV (06:36)
[2025-05-11] MEDS: IOPAMIDOL-370 (76%);100ML BOTTLE 80 ML IV (06:36)
--- NOTE | 2025-05-11 07:28 | PC.NURSE ---
Dr. Rodriguez paged.
--- NOTE | 2025-05-11 08:00 | PC.NURSE ---
Dr. Seals speaking with Dr. Rodriguez.
--- NOTE | 2025-05-11 08:21 | PC.NURSE ---
trucking supervisor contacted for bed
--- NOTE | 2025-05-11 08:41 | PC.NURSE ---
Report given to DOMINICK Oswald for room 210
[2025-05-11 09:18] LABS: Troponin I 0.36 ng/ml (0.00-0.034)
--- NOTE | 2025-05-11 10:18 | PC.NURSE ---
patient arrived to the floor at 0857 by wheelchair.
[2025-05-11 10:25] LABS: Hepatitis C Ab Qual. W/ RFX NEGATIVE (Negative)
[2025-05-11 10:39] LABS: Cholesterol 171 mg/dl (140-200); HDL Cholesterol 40 mg/dl (40-60); Triglycerides 86 mg/dl (30-150)
[2025-05-11 10:41] LABS: Free T4 (Free Thyroxine) 1.30 ng/dl (0.78-2.19)
[2025-05-11 11:10] LABS: Thyroid Stimulating Hormone 1.19 uIU/mL (0.465-4.68)
[2025-05-11 11:31] LABS: Hemoglobin A1C 5.5 % (4.0-6.0)
[2025-05-11 12:44] LABS: Troponin I 0.36 ng/ml (0.00-0.034)
--- NOTE | 2025-05-11 13:19 | P.HP_ITS ---
History of Present Illness *Admission Date: 05/11/25 *Reason for visit:: Shortness of breath *History of present illness: Cathie Phillips is a 59-year-old female with medical history significant for [id number] current smoker presents with shortness of breath for about a month, and productive cough for the past week. She states she has had intermittent basis shortness of breath over the past year, but never this bad. Also states she has intermittent nonproductive cough at baseline, but not productive like this. Denies fever/chills, chest pain, orthopnea, PND, leg swelling. Workup in the ED significant for troponin 0.45, WBC 10.9, BNP 7570. CTA chest revealed chronic apical moderate emphysema, but otherwise no PE or acute focal findings. Initially tachycardia, tachypneic. She was given Solu-Medrol 125 mg, aspirin 324 mg, and DuoNebs. Remained on room air. Dr. Rodriguez with cardiology was consulted by the ED who recommended admission for NSTEMI and LHC on Tuesday. On my evaluation, patient was resting in bed comfortably without acute distress. She states she feels much better after treatment in the ED, breathing easier. No chest pain, shortness of breath. Given these findings, I discussed case with ED provider and I decided to admit patient for NSTEMI. [facility] Disclaimer: The information contained in this section may have been updated after the patient was seen, as this information can be updated by other users. Surgical History (Updated 05/11/25 @ 12:17 by Amari Becerra RN) History of cholecystectomy Family History (Updated 05/11/25 @ 12:17 by Amari Becerra RN) Other Lung cancer Social History (Updated 05/11/25 @ 12:19 by Amari Becerra RN) Smoking Status: Current every day smoker tobacco type: cigarettes packs per day: 1 alcohol intake: never current occupational status: employed and other Travel in the last 8 weeks?: None Have you lived/traveled outside US in past 30 days?: No Contact w/someone who lives/traveled outside US past 30 days?: No Exposure to someone with infectious disease in past 14 days?: No Do you have a fever (greater than 100.4 F or 38 C)?: No Have you tested positive for COVID-19?: No Exposed to someone with COVID-19 in past 14 days?: No Do you have a sore throat?: No Do you have a cough?: Yes Do you have any weakness?: No Do you have any diarrhea?: No Are you experiencing any unusual bleeding?: No Do you have any muscle aches/pain?: No Do you have any abdominal pain?: No Are you experiencing loss of taste or smell?: No Other Medical History Have you received the Flu Vaccine for this season: No Have you received the Pneumonia Vaccine: No Meds Home Medications and Allergies New Prescriptions to Start Prescriptions: Allergies Allergy/AdvReac Type Severity Reaction Status Date / Time No Known Allergies Allergy Verified 03/07/25 18:18 Exam Data for Last 24 hours Vital signs and Labs for Last 24 Hours: Temp Pulse Resp BP Pulse Ox O2 Del Method 97.0 F L 88 18 113/85 92 L Room Air 05/11/25 12:00 05/11/25 12:00 05/11/25 12:00 05/11/25 12:00 05/11/25 12:00 05/11/25 12:19 Laboratory Results - last 24 hr 05/11/25 05:37: VBG pH 7.38, VBG pCO2 42.4, VBG pO2 58.4 H, VBG HCO3 24.7, VBG Total CO2 26.0, VBG O2 Saturation 91.6 H, VBG Base Excess -0.4, VBG Lactic Acid 1.3 05/11/25 05:40: WBC 10.9 H, RBC 5.24, Hgb 15.7, Hct 47.9 H, MCV 91.4, MCH 30.0, MCHC 32.8, RDW 12.9, Plt Count 211, MPV 9.4, Neut % (Auto) 81.9 H, Lymph % (Auto) 8.6 L, [place] % (Auto) 6.8, Eos % (Auto) 1.5, Baso % (Auto) 0.7, Neut # (Auto) 8.9 H, Lymph # (Auto) 0.9, [place] # (Auto) 0.7, Eos # (Auto) 0.2, Baso # (Auto) 0.1, PT 11.8, INR 1.07, Sodium 134 L, Potassium 3.9, Chloride 100, Carbon Dioxide 29, Anion Gap 8.9, BUN 10, Creatinine 0.80, Estimated Creat Clear 59, Estimated GFR 73, Est GFR ( Amer) 89, Glucose 173 H, Hemoglobin A1c 5.5, Calcium 9.4, Total Bilirubin 1.4 H, AST 25, ALT 12, Alkaline Phosphatase 76, Troponin I 0.45 H, NT-Pro-B Natriuret Pep 7570 H, Total Protein 7.6, Albumin 4.2, Globulin 3.4 H, Albumin/Globulin Ratio 1.2, Triglycerides 86, Cholesterol 171, LDL Cholesterol Direct 117.27, VLDL Cholesterol 17, HDL Cholesterol 40, Cholesterol/HDL Ratio 4.3 H, Lipase 42, TSH 1.19, Free T4 1.30, HCV Ab [place] w/Rflx PCR Qn Negative, HIV Ag/Ab Combo Qual Negative 05/11/25 08:35: Troponin I 0.36 H 05/11/25 12:01: Troponin I 0.36 H I & O for Last 24 hours: Intake & Output 05/08/25 05/09/25 05/10/25 05/11/25 23:59 23:59 23:59 23:59 Weight 46.947 kg Constitutional Constitutional: no acute distress *Routine HEENT Exam Head: Present normocephalic Eye: Present EOMI and PERRL ENT: Present mucous membranes moist *Routine Neck Exam Neck: Present supple; Absent lymphadenopathy *Routine Respiratory Exam Respiratory: Present CTA bilaterally *Routine Cardiovascular Exam Cardiovascular: Present RRR *Routine Abdominal Exam Abdominal: Present soft and normoactive bowel sounds; Absent tenderness *Routine Rectal Exam Rectal:: deferred *Routine Genitalia Exam Genitalia:: deferred *Routine Extremities Exam Extremities: Absent cyanosis, clubbing or edema *Routine Skin Exam Skin: Present warm; Absent rash *Routine Neurological Exam Neurological: Present alert and oriented X3 Assessment and Plan *Assessment and plan (1) Acute non-ST elevation myocardial infarction (NSTEMI): Status: Acute Category: Medical Code(s): I21.4 - Non-ST elevation (NSTEMI) myocardial infarction (2) Emphysema lung: Status: Acute Category: Medical Code(s): J43.9 - Emphysema, unspecified (3) Smoker: Status: Acute Category: Social Hx Code(s): F17.200 - Nicotine dependence, unspecified, uncomplicated Plan Cathie Phillips is a 59-year-old female with medical history significant for 10 -pack-year current smoker presents with shortness of breath for about a month, and productive cough for the past week. She states she has had intermittent basis shortness of breath over the past year, but never this bad. Also states she has intermittent nonproductive cough at baseline, but not productive like this. Denies fever/chills, chest pain, orthopnea, PND, leg swelling. Workup in the ED significant for troponin 0.45, WBC 10.9, BNP 7570. CTA chest revealed chronic apical moderate emphysema, but otherwise no PE or acute focal findings. Initially tachycardia, tachypneic. She was given Solu-Medrol 125 mg, aspirin 324 mg, and DuoNebs. Remained on room air. Dr. Rodriguez with cardiology was consulted by the ED who recommended admission for NSTEMI and LHC on Tuesday. On my evaluation, patient was resting in bed comfortably without acute distress. She states she feels much better after treatment in the ED, breathing easier. No chest pain, shortness of breath. Given these findings, I discussed case with ED provider and I decided to admit patient for NSTEMI. #NSTEMI #10 pack-year current smoker ? Presented with shortness of breath, found to have troponin 0.45 (downtrending) and EKG showing T wave inversions in inferior lateral and septal leads. ? Dr. Rodriguez consulted, recommended therapeutic Lovenox and LHC on Tuesday. ? Started aspirin 81 mg, atorvastatin 40 mg, metoprolol succinate 25 mg. ? Continue therapeutic Lovenox 45 mg twice daily. ? Continuous cardiac telemetry. ? A1c 5.5%, LDL 117, TSH normal. ? ECHO Tuesday. ? Cardiology consulted, pending further recommendations on Tuesday. #Shortness of breath #Productive cough #Suspected COPD with mild exacerbation #Suspected heart failure ? Dyspnea may be related to NSTEMI, CTA shows evidence of emphysema and symptoms improved with Solu-Medrol in the ED. Lungs clear to auscultation currently. ? Initial BNP 7570, has had clear productive cough over the past week. However, denies orthopnea, PND. ? Will give one-time dose of IV Lasix 40 mg, follow-up urine output, renal function. ? Continue DuoNebs every 6 hours. ? Will hold off on steroids, antibiotics at this time. ? Follow-up ECHO as above. ? Pulmonology consulted, pending further recommendations. #Tobacco smoker ? Nicotine patch daily as needed. Full code DVT prophylaxis: Therapeutic
[2025-05-11 13:57] LABS: Adenovirus,PCR Not Detected (NotDetected); Chlamydophila Pneumoniae, PCR Not Detected (NotDetected); Coronavirus 19, PCR Not Detected (NotDetected); Coronovirus HKU1,PCR Not Detected (NotDetected); Influenza A, PCR Not Detected (NotDetected); Influenza AH1, 2009 Not Detected (NotDetected); Influenza AH1, PCR Not Detected (NotDetected); Influenza AH3,PCR Not Detected (NotDetected); Influenza B, PCR Not Detected (NotDetected); Mycoplasma Pneumoniae, PCR Not Detected (NotDetected); Parainfluenza 1, PCR Not Detected (NotDetected); Parainfluenza 2, PCR Not Detected (NotDetected); Parainfluenza 3, PCR Not Detected (NotDetected); Parainfluenza 4, PCR Not Detected (NotDetected)
[2025-05-11] MEDS: FUROSEMIDE 40MG/4ML VIAL 40 MG IV (14:00)
[2025-05-11] MEDS: METOPROLOL SUCCINATE XL 25MG TABLET 25 MG PO (16:04)
[2025-05-11] MEDS: IPRATROPIUM/ALBUTEROL 3 ML NEB IH ×2 (18:14→22:55)
[2025-05-11] MEDS: ATORVASTATIN 40MG TABLET 40 MG PO (20:10)
[2025-05-12] VITALS (12 sets, daily range): BP systolic 110–131; BP diastolic 74–95; PULSE 68–100; RESP 12–18; TEMP 36.4–36.7; O2SAT 90–95; BMI 20.2
--- NOTE | 2025-05-12 03:21 | PC.NURSE ---
Pt AOx4. No acute changes this shift. Resting in bed with eyes closed. Respirations even and unlabored. Bed low, locked, and call light is in reach.
[2025-05-12 05:57] LABS: Hematocrit 48.4 % (37.0-47.0); Hemoglobin 15.7 g/dL (12.2-16.2); Immature Granulocytes % 0.5 %; Mean Corpuscular HGB Conc 32.4 g/dL (31.8-35.4); Mean Corpuscular Hemoglobin 29.3 pg (27.0-31.2); Mean Corpuscular Volume 90.3 fl (81-99); Nucleated Red Blood Cells % 0 %; Platelet Count 227 K/mm3 (142-424); Red Blood Count 5.36 M/mm3 (4.20-5.40); Red Cell Distribution Width-SD 43.7 fL; White Blood Count 17.0 K/mm3 (4.8-10.8)
[2025-05-12 06:11] LABS: Albumin Level 4.0 g/dl (3.5-5.0); Chloride 100 mmol/L (98-107); Sodium 133 mmol/L (136-145)
[2025-05-12 06:12] LABS: Potassium 3.9 mmoL/L (3.5-5.1)
[2025-05-12 06:14] LABS: Alanine Aminotransferase 11 U/L (12-78); Albumin/Globulin Ratio 1.2 (1.1-1.8); Alkaline Phosphatase 68 U/L (38-126); Anion Gap 9.9 mEq/L (5-15); Aspartate Amino Transferase 23 U/L (14-36); Bilirubin,Total 0.7 mg/dl (0.2-1.3); Blood Urea Nitrogen 26 mg/dl (7-17); Carbon Dioxide 27 mmol/L (22.0-30.0); Creatinine Clearance Estimated 51 mL/min (50-200); Creatinine,Serum 0.90 mg/dl (0.52-1.04); Estimated Glomerular Filt Rate 64 ml/min (>60); GFR (African American) 77 ML/MIN (>60); Globulin 3.3 g/dL (1.3-3.2); Total Protein,Serum 7.3 g/dl (6.3-8.2)
[2025-05-12 06:15] LABS: Calcium 9.2 mg/dl (8.4-10.2); Glucose 135 mg/dl (74-100); Magnesium 1.8 mg/dl (1.6-2.3)
[2025-05-12] MEDS: IPRATROPIUM/ALBUTEROL 3 ML NEB IH ×4 (06:17→23:38)
[2025-05-12] MEDS: METOPROLOL SUCCINATE XL 25MG TABLET 25 MG PO (09:30)
[2025-05-12] MEDS: ASPIRIN EC 81MG TABLET 81 MG PO (09:30)
--- NOTE | 2025-05-12 16:36 | P.PN_ITS ---
Subjective *Date: 05/12/25 *Time: 16:36 Interval history: Patient feels well today, improved cough. No chest pain, shortness of breath. Eager to complete likely [facility] in the morning. Exam Data for Last 24 hours Vital signs and Labs for Last 24 Hours: Temp Pulse Resp BP Pulse Ox O2 Del Method 98.0 F 68 16 122/80 90 L Room Air 05/12/25 12:00 05/12/25 12:00 05/12/25 12:00 05/12/25 12:00 05/12/25 12:00 05/12/25 15:00 Laboratory Results - last 24 hr 05/12/25 05:45: WBC 17.0 H D, RBC 5.36, Hgb 15.7, Hct 48.4 H, MCV 90.3, MCH 29.3, MCHC 32.4, RDW 13.1, Plt Count 227, MPV 9.5, Neut % (Auto) 85.2 H, Lymph % (Auto) 6.1 L, [place] % (Auto) 7.8, Eos % (Auto) 0.2, Baso % (Auto) 0.2, Neut # (Auto) 14.5 H, Lymph # (Auto) 1.0, [place] # (Auto) 1.3 H, Eos # (Auto) 0.0, Baso # (Auto) 0.0, Sodium 133 L, Potassium 3.9, Chloride 100, Carbon Dioxide 27, Anion Gap 9.9, BUN 26 H D, Creatinine 0.90, Estimated Creat Clear 51, Estimated GFR 64, Est GFR ( Amer) 77, Glucose 135 H, Calcium 9.2, Magnesium 1.8, Total Bilirubin 0.7, AST 23, ALT 11 L, Alkaline Phosphatase 68, Total Protein 7.3, A lbumin 4.0, Globulin 3.3 H, Albumin/Globulin Ratio 1.2 I & O for Last 24 hours: Intake & Output 05/09/25 05/10/25 05/11/25 05/12/25 23:59 23:59 23:59 23:59 Intake Total 740 / 740 480 / 480 Output Total 0 / 0 0 / 0 Balance 740 / 740 480 / 480 Weight 46.947 kg 48.716 kg Constitutional Constitutional: no acute distress *Routine HEENT Exam Head: Present normocephalic Eye: Present EOMI and PERRL ENT: Present mucous membranes moist *Routine Neck Exam Neck: Present supple; Absent lymphadenopathy *Routine Respiratory Exam Respiratory: Present CTA bilaterally *Routine Cardiovascular Exam Cardiovascular: Present RRR *Routine Abdominal Exam Abdominal: Present soft and normoactive bowel sounds; Absent tenderness *Routine Extremities Exam Extremities: Absent cyanosis, clubbing or edema *Routine Skin Exam Skin: Present warm; Absent rash *Routine Neurological Exam Neurological: Present alert and oriented X3 Assessment and Plan *Assessment and plan (1) Acute non-ST elevation myocardial infarction (NSTEMI): Status: Acute Category: Medical Code(s): I21.4 - Non-ST elevation (NSTEMI) myocardial infarction (2) Emphysema lung: Status: Acute Category: Medical Code(s): J43.9 - Emphysema, unspecified (3) Smoker: Status: Acute Category: Social Hx Code(s): F17.200 - Nicotine dependence, unspecified, uncomplicated Plan Cathie Phillips is a 59-year-old female with medical history significant for [id number] current smoker presents with shortness of breath for about a month, and productive cough for the past week. She states she has had intermittent basis shortness of breath over the past year, but never this bad. Also states she has intermittent nonproductive cough at baseline, but not productive like this. Denies fever/chills, chest pain, orthopnea, PND, leg swelling. Workup in the ED significant for troponin 0.45, WBC 10.9, BNP 7570. CTA chest revealed chronic apical moderate emphysema, but otherwise no PE or acute focal findings. Initially tachycardia, tachypneic. She was given Solu-Medrol 125 mg, aspirin 324 mg, and DuoNebs. Remained on room air. Dr. Rodriguez with cardiology was consulted by the ED who recommended admission for NSTEMI and LHC on Tuesday. On my evaluation, patient was resting in bed comfortably without acute distress. She states she feels much better after treatment in the ED, breathing easier. No chest pain, shortness of breath. Given these findings, I discussed case with ED provider and I decided to admit patient for NSTEMI. #NSTEMI #10 pack-year current smoker ? Presented with shortness of breath, found to have troponin 0.45 (downtrending) and EKG showing T wave inversions in inferior lateral and septal leads. ? Dr. Rodriguez consulted, recommended therapeutic Lovenox and LHC on Tuesday. ? Continue aspirin 81 mg, atorvastatin 40 mg, metoprolol succinate 25 mg. ? Continue therapeutic Lovenox 45 mg twice daily. ? Continuous cardiac telemetry. ? A1c 5.5%, LDL 117, TSH normal. ? Follow-up ECHO Tuesday. ? Cardiology consulted, pending further recommendations on Tuesday. #Shortness of breath #Productive cough #Suspected heart failure ? Dyspnea may be related to NSTEMI, CTA shows evidence of emphysema and symptoms improved with Solu-Medrol in the ED. Lungs clear to auscultation currently. ? Initial BNP 7570, has had clear productive cough over the past week. However, denies orthopnea, PND. ? Patient states she feels better, breathing easier, coughing less after one- time dose of IV Lasix 40 mg. ? Will hold on further Lasix until ECHO results, pending cardiology recommendations. ? Continue DuoNebs every 6 hours. ? Will hold off on steroids, antibiotics at this time given stability of exam. ? Follow-up ECHO as above. ? Pulmonology consulted due to [id number] smoking history, pending further recommendations. Will benefit from outpatient PFTs. #Tobacco smoker ? Nicotine patch daily as needed. Full code DVT prophylaxis: Therapeutic
[2025-05-12] MEDS: ATORVASTATIN 40MG TABLET 40 MG PO (20:03)
[2025-05-13] VITALS (20 sets, daily range): BP systolic 96–138; BP diastolic 57–85; PULSE 60–86; RESP 12–20; TEMP 36.5–36.9; O2SAT 92–100; BMI 20.5
--- NOTE | 2025-05-13 06:00 | CA_ITS ---
APPROVED REPORT EXAM: Comprehensive 2D, Doppler, and color-flow Echocardiogram [employer] Worker: Mary Santos, RT(R) Ht: 5 ft 1 in Wt: 102lbs BSA: 1.42 BP: 148/94 mmHg Indications: Elevated troponin, chest pain, COPD, smoker, shortness of breath 2D Dimensions Aortic Root 1.81 cm F: 2.7 - 3.3 LVEF (Sanford's) 50.00 % F: 54 - 74 Left Atrium 1.76 cm F: 2.7 - 3.8 LV Volume 54.00 mL F: 46 - 106 LV Volume Index 38.0 mL/m2 F: 29 - 61 EF AP4 52.50 % EF AP2 42.3 % EF BP 50.0 % GL Strain -9.6 % M-Mode Dimensions RVDd 1.85 cm (0.9-2.6) LVDd 4.13 cm (3.5-5.7) Ao Diam 2.67 cm (2.0-3.7) LVDs 3.29 cm (3.5-5.7) IVSd 0.78 cm (0.6-1.1) PWd 0.78 cm (0.6-1.1) EF (Teich) 42.00% FS 20.30% EDV (Teich) 75.50 mL ESV (Teich) 43.80 mL LV Diastology E Decel Time 192 (160-240 msec) E/A Ratio 0.6 MED E' 4.6 (>= 7 cm/sec) E'/MED E' Ratio 13.24 (<= 14) LAT E' 5.3 (>= 10 cm/sec) E/LAT E' Ratio 11.49 (<= 14) Aortic Valve LVOT Max 86.0 (70-110 cm/s) LVOT VTI 16.20 cm Mitral Valve MV E Max Markus. 61.0 (40-130 cm/s) MV A Velocity 97.0 (40-130 cm/s) E/A Ratio 0.63 MV Decel. Time 192 (160-240 ms) Left Ventricle The left ventricle is normal size. Left ventricular systolic function is mildly reduced. There is increased left ventricular wall thickness. Apical akinesis is present. There is grade 1 diastolic dysfunction present. LVEF is 40-45% Right Ventricle The right ventricle is normal size. The right ventricular systolic function is normal. Atria The left atrium size is normal. The right atrium size is normal. There is no color Doppler evidence of interatrial shunt. Aortic Valve The aortic valve opens well. There is no hemodynamically significant aortic valvular stenosis. Trace aortic regurgitation is present. Mitral Valve The mitral valve is normal in structure. No evidence of mitral valve stenosis. Trace mitral regurgitation is present. Tricuspid Valve The tricuspid valve leaflets are thin and pliable. Trace tricuspid regurgitation. There is insufficient TR jet to estimate RVSP. Pulmonic Valve The pulmonary valve is grossly normal in structure. Trace pulmonic valve regurgitation is present. Great Vessels The aortic root is normal in size. IVC is normal in size and collapses >50% with inspiration. Pericardium There is no pericardial effusion. Other Information Study Quality: Fair Conclusion Mildly reduced LV systolic function (LVEF 40-45%). Apical akinesis is present. No significant valvular stenosis or regurgitation. Electronically signed by : Ramila Montes MD 05/13/2025 18:47:36
[2025-05-13] MEDS: IPRATROPIUM/ALBUTEROL 3 ML NEB IH (06:24)
[2025-05-13 06:30] LABS: Hematocrit 46.2 % (37.0-47.0); Hemoglobin 14.7 g/dL (12.2-16.2); Immature Granulocytes % 0.5 %; Mean Corpuscular HGB Conc 31.8 g/dL (31.8-35.4); Mean Corpuscular Hemoglobin 29.1 pg (27.0-31.2); Mean Corpuscular Volume 91.5 fl (81-99); Nucleated Red Blood Cells % 0 %; Platelet Count 235 K/mm3 (142-424); Red Blood Count 5.05 M/mm3 (4.20-5.40); Red Cell Distribution Width-SD 44.8 fL; White Blood Count 10.5 K/mm3 (4.8-10.8)
[2025-05-13 06:54] LABS: Alanine Aminotransferase 11 U/L (12-78); Albumin Level 3.7 g/dl (3.5-5.0); Albumin/Globulin Ratio 1.2 (1.1-1.8); Alkaline Phosphatase 57 U/L (38-126); Anion Gap 9.9 mEq/L (5-15); Aspartate Amino Transferase 21 U/L (14-36); Bilirubin,Total 0.4 mg/dl (0.2-1.3); Blood Urea Nitrogen 26 mg/dl (7-17); Calcium 8.5 mg/dl (8.4-10.2); Carbon Dioxide 30 mmol/L (22.0-30.0); Chloride 98 mmol/L (98-107); Creatinine Clearance Estimated 46 mL/min (50-200); Creatinine,Serum 1.00 mg/dl (0.52-1.04); Estimated Glomerular Filt Rate 57 ml/min (>60); GFR (African American) 68 ML/MIN (>60); Globulin 3.0 g/dL (1.3-3.2); Glucose 93 mg/dl (74-100); Magnesium 1.9 mg/dl (1.6-2.3); Potassium 3.9 mmoL/L (3.5-5.1); Sodium 134 mmol/L (136-145); Total Protein,Serum 6.7 g/dl (6.3-8.2)
[2025-05-13] MEDS: ASPIRIN EC 81MG TABLET 81 MG PO (08:16)
[2025-05-13] MEDS: METOPROLOL SUCCINATE XL 25MG TABLET 25 MG PO (08:17)
--- NOTE | 2025-05-13 09:34 | P.CONS_ITS ---
History of Present Illness History of present illness: Ms. Phillips is a 59-year-old female around 20 to 25 -pack-year smoking history presented to the ER with worsening respiratory distress cough and chest discomfort currently being managed for NSTEMI and pulmonary was called for further evaluation and management of the noted emphysema. [facility] Disclaimer: The information contained in this section may have been updated after the patient was seen, as this information can be updated by other users. Medical History (Updated 05/13/25 @ 11:10 by Dora Burgess APRN) Smoker Emphysema lung Acute non-ST elevation myocardial infarction (NSTEMI) COPD exacerbation Tobacco abuse Atypical angina Dyspnea on exertion Surgical History (Updated 05/11/25 @ 12:17 by Amari Becerra RN) History of cholecystectomy Family History (Updated 05/11/25 @ 12:17 by Amari Becerra RN) Other Lung cancer Social History (Updated 05/11/25 @ 12:19 by Amari Becerra RN) Smoking Status: Current every day smoker tobacco type: cigarettes packs per day: 1 alcohol intake: never current occupational status: employed and other Travel in the last 8 weeks?: None Have you lived/traveled outside US in past 30 days?: No Contact w/someone who lives/traveled outside US past 30 days?: No Exposure to someone with infectious disease in past 14 days?: No Do you have a fever (greater than 100.4 F or 38 C)?: No Have you tested positive for COVID-19?: No Exposed to someone with COVID-19 in past 14 days?: No Do you have a sore throat?: No Do you have a cough?: Yes Do you have any weakness?: No Do you have any diarrhea?: No Are you experiencing any unusual bleeding?: No Do you have any muscle aches/pain?: No Do you have any abdominal pain?: No Are you experiencing loss of taste or smell?: No Review of Systems Constitutional Constitutional: Denies anorexia, Denies body ache(s) and Reports fatigue Eyes Eyes: Denies eye discharge, Denies dry eyes, Denies irritation and Denies itchy eyes ENT Ears, Nose, Mouth, and Throat: Denies epistaxis, Denies facial pain, Denies lip swelling and Denies throat swelling *Cardiovascular Cardiovascular: Reports chest pain, Reports dyspnea and Reports dyspnea on exertion *Respiratory Respiratory: Denies change in phlegm color, Reports chest congestion, Reports cough, Reports dyspnea, Reports dyspnea on exertion, Denies excessive phlegm production, Denies hemoptysis, Denies pain on inspiration, Denies pain with cough and Denies wheezing *Gastrointestinal Gastrointestinal: Denies abdominal pain, Denies belching and Denies cramping *Musculoskeletal Musculoskeletal: Reports back pain Psychiatric Psychiatric: Denies homicidal ideation and Denies suicidal ideation Endocrine Endocrine: Reports fatigue and Denies heat intolerance Hematologic/Lymphatic Hematologic/Lymphatic: Denies easy bleeding and Denies lymphadenopathy Allergic/Immunologic Allergic/Immunologic: Denies itchy eyes, Denies lip swelling, Denies throat swelling and Denies wheezing Pulmonology Exam Inpatient Vital signs and Labs for Last 24 Hours: Temp Pulse Resp BP Pulse Ox O2 Del Method 97.7 F 77 12 138/85 92 L Room Air 05/13/25 07:53 05/13/25 07:53 05/13/25 07:53 05/13/25 07:53 05/13/25 07:53 05/13/25 07:53 Laboratory Results - last 24 hr 05/13/25 05:38: WBC 10.5 D, RBC 5.05, Hgb 14.7, Hct 46.2, MCV 91.5, MCH 29.1, MCHC 31.8, RDW 13.3, Plt Count 235, MPV 9.7, Neut % (Auto) 69.7, Lymph % (Auto) 19.9, [place] % (Auto) 6.4, Eos % (Auto) 2.8, Baso % (Auto) 0.7, Neut # (Auto) 7.3, Lymph # (Auto) 2.1, [place] # (Auto) 0.7, Eos # (Auto) 0.3, Baso # (Auto) 0.1, S odium 134 L, Potassium 3.9, Chloride 98, Carbon Dioxide 30, Anion Gap 9.9, BUN 26 H, Creatinine 1.00, Estimated Creat Clear 46, Estimated GFR 57 L, Est GFR ( Amer) 68, Glucose 93 D, Calcium 8.5, Magnesium 1.9, Total Bilirubin 0.4, AST 21, ALT 11 L, Alkaline Phosphatase 57, Total Protein 6.7, Albumin 3.7, Globulin 3.0, Albumin/Globulin Ratio 1.2 I & O for Labs for Last 24 Hours: Intake & Output 05/10/25 05/11/25 05/12/25 05/13/25 23:59 23:59 23:59 23:59 Intake Total 740 / 740 960 / 1200 590 / 590 Output Total 0 / 0 0 / 450 1300 / 1300 Balance 740 / 740 960 / 750 -710 / -710 Weight 103 lb 8 oz 107 lb 6.4 oz 108 lb 6.4 oz Constitutional: Present moderate distress Head: Present normocephalic and atraumatic ENT: Present normal exam, normal oropharynx and mucous membranes moist Neck: Present normal inspection and full ROM Respiratory: Present wheezes and able to speak in complete sentences; Absent prolonged expiratory phase, respiratory distress or diminished air movement Cardiac: Present S1/S2, Tachycardia and radial pulses present GI: Present soft and distention; Absent tenderness or guarding Rectal (female): Present deferred (female): Present deferred Skin: Present intact; Absent cyanosis or jaundice Neuro: Present alert, awake and oriented x 3 Extremities: Present normal inspection; Absent clubbing or cyanosis Psychiatric: Present normal affect and cooperative Meds Home Medications and Allergies Home Medications ?Medication ?Instructions ?Recorded ?Confirmed ?Type No Known Home Medications 05/12/25 0903/29 History New Prescriptions to Start Prescriptions: Allergies Allergy/AdvReac Type Severity Reaction Status Date / Time No Known Allergies Allergy Verified 03/07/25 18:18 Results Laboratory Findings 05/13/25 05:38 05/13/25 05:38 PT/INR, D-dimer PT 11.8 seconds (10.1-12.5) 05/11/25 05:40 INR 1.07 (0.9-1.1) 05/11/25 05:40 Abnormal lab findings: Abnormal Labs 05/11/25 05/11/25 05/11/25 05:37 05:40 08:35 WBC 10.9 H Hct 47.9 H Neut % (Auto) 81.9 H Lymph % (Auto) 8.6 L Neut # (Auto) 8.9 H [place] # (Auto) VBG pO2 58.4 H VBG O2 Saturation 91.6 H Sodium 134 L BUN Estimated GFR Glucose 173 H Total Bilirubin 1.4 H ALT Troponin I 0.45 H 0.36 H NT-Pro-B Natriuret Pep 7570 H Globulin 3.4 H Cholesterol/HDL Ratio 4.3 H 05/11/25 05/12/25 05/13/25 12:01 05:45 05:38 WBC 17.0 H D Hct 48.4 H Neut % (Auto) 85.2 H Lymph % (Auto) 6.1 L Neut # (Auto) 14.5 H [place] # (Auto) 1.3 H VBG pO2 VBG O2 Saturation Sodium 133 L 134 L BUN 26 H D 26 H Estimated GFR 57 L Glucose 135 H Total Bilirubin ALT 11 L 11 L Troponin I 0.36 H NT-Pro-B Natriuret Pep Globulin 3.3 H Cholesterol/HDL Ratio Assessment and Plan *Assessment and plan (1) Emphysema lung: Status: Acute Category: Medical Code(s): J43.9 - Emphysema, unspecified (2) Dyspnea on exertion: Status: Acute Category: Medical Code(s): R06.09 - Other forms of dyspnea Plan Ms. Phillips is a 59-year-old female around 20 to 25 -pack-year smoking history presented to the ER with worsening respiratory distress cough and chest discomfort currently being managed for NSTEMI and pulmonary was called for further evaluation and management of the noted emphysema. Afebrile. Hemodynamically stable. Neutrophilic predominant leukocytosis upon admission, improving. Complains of respiratory viral PCR panel negative. CTA upon admission no pulmonary embolism. No dense consolidative/airspace changes. Upper lobe predominant centrilobular emphysematous changes noted. No suspicious pulmonary nodules noted. Continue annual low-dose CT screenings. Right upper lobe calcified granuloma noted No respiratory distress. On room air. Plan: Initiate Anoro inhaler along with DuoNebs every 6 as needed Follow as an outpatient basis with a full PFT and 6-minute walk testing No need for antibiotics or steroids from pulmonary standpoint # Thank you for involving pulmonary in this patient Will follow the patient in the clinic as an outpatient basis with a full PFT and walk testing in 3 to 4 weeks. Please schedule PFT walk testing prior to discharge.
--- NOTE | 2025-05-13 10:13 | EXP.DC.SUM ---
General Admission date:: 05/11/25 Discharge date: 05/13/25 HPI HPI HPI: Cathie Phillips is a 59-year-old female with medical history significant for [id number] current smoker presents with shortness of breath for about a month, and productive cough for the past week. She states she has had intermittent basis shortness of breath over the past year, but never this bad. Also states she has intermittent nonproductive cough at baseline, but not productive like this. Denies fever/chills, chest pain, orthopnea, PND, leg swelling. Workup in the ED significant for troponin 0.45, WBC 10.9, BNP 7570. CTA chest revealed chronic apical moderate emphysema, but otherwise no PE or acute focal findings. Initially tachycardia, tachypneic. She was given Solu-Medrol 125 mg, aspirin 324 mg, and DuoNebs. Remained on room air. Dr. Rodriguez with cardiology was consulted by the ED who recommended admission for NSTEMI and LHC on Tuesday. On my evaluation, patient was resting in bed comfortably without acute distress. She states she feels much better after treatment in the ED, breathing easier. No chest pain, shortness of breath. Given these findings, I discussed case with ED provider and I decided to admit patient for NSTEMI. Hospital Course Hospital Course Hospital Course: Cathie Phillips is a 59-year-old female with medical history significant for [id number] current smoker presents with shortness of breath for about a month, and productive cough for the past week. She states she has had intermittent basis shortness of breath over the past year, but never this bad. Also states she has intermittent nonproductive cough at baseline, but not productive like this. Denies fever/chills, chest pain, orthopnea, PND, leg swelling. Workup in the ED significant for troponin 0.45, WBC 10.9, BNP 7570. CTA chest revealed chronic apical moderate emphysema, but otherwise no PE or acute focal findings. Initially tachycardia, tachypneic. She was given Solu-Medrol 125 mg, aspirin 324 mg, and DuoNebs. Remained on room air. Dr. Rodriguez with cardiology was consulted by the ED who recommended admission for NSTEMI and LHC on Tuesday. On my evaluation, patient was resting in bed comfortably without acute distress. She states she feels much better after treatment in the ED, breathing easier. No chest pain, shortness of breath. Given these findings, I discussed case with ED provider and I decided to admit patient for NSTEMI. Overall did well during admission. Stable on room air. Cardiology and pulmonology evaluated during admission. Taken for left heart cath, no occlusive lesions identified. Stable discharge home with close follow-up as an outpatient. Problems addressed as follows: #NSTEMI #10 pack-year current smoker ? Presented with shortness of breath, found to have troponin 0.45 (downtrending) and EKG showing T wave inversions in inferior lateral and septal leads. Cardiology was consulted. Initiated on therapeutic Lovenox. Taken for left heart cath on Tuesday. Findings during left heart cath as follows: Nonflow-limiting coronary artery disease as described above Slow flow down the mid to distal LAD most consistent with endothelial dysfunction Mid anterior apical defect likely resolving Takotsubo cardiomyopathy Mildly elevated LVEDP Cardiology recommends continuing medical management and supportive for toxic cardiomyopathy at EF on echo found to be 40 to 45%. Recommend continuing losartan, metoprolol, aspirin and statin daily. ? A1c 5.5%, LDL 117, TSH normal. Her LDL goal is less than 55. Her LDL is 117. She has been started on a statin. ? Follow-up with cardiology as an outpatient in the coming weeks #Shortness of breath #Productive cough #Suspected heart failure ? Dyspnea may be related to NSTEMI, CTA shows evidence of emphysema and symptoms improved with Solu-Medrol in the ED. Lungs clear to auscultation currently. Initial BNP 7570, has had clear productive cough over the past week. However, denies orthopnea, PND. Patient states she feels better, breathing easier, coughing less after one-time dose of IV Lasix 40 mg. Hold on further diuretics. Continue DuoNebs. Pulmonology evaluated. Recommend following as an outpatient to consider PFTs. Will hold on steroids or antibiotics at this time. Pulmonology recommends initiating Anoro inhaler, provided with sample during admission. Follow-up as outpatient for PFT and 6-minute walk test. #Tobacco smoker: Discussed cessation. Nicotine patch provided during admission. Patient contemplative Total time spent on discharge 35 minutes in counseling, documentation, chart review, and direct care with patient. Exam Data for Last 24 hours Vital signs and Labs for Last 24 Hours: Temp Pulse Resp BP Pulse Ox O2 Del Method 97.7 F 77 12 138/85 92 L Room Air 05/13/25 07:53 05/13/25 07:53 05/13/25 07:53 05/13/25 07:53 05/13/25 07:53 05/13/25 08:00 Laboratory Results - last 24 hr 05/13/25 05:38: WBC 10.5 D, RBC 5.05, Hgb 14.7, Hct 46.2, MCV 91.5, MCH 29.1, MCHC 31.8, RDW 13.3, Plt Count 235, MPV 9.7, Neut % (Auto) 69.7, Lymph % (Auto) 19.9, [place] % (Auto) 6.4, Eos % (Auto) 2.8, Baso % (Auto) 0.7, Neut # (Auto) 7.3, Lymph # (Auto) 2.1, [place] # (Auto) 0.7, Eos # (Auto) 0.3, Baso # (Auto) 0.1, Sodium 134 L, Potassium 3.9, Chloride 98, Carbon Dioxide 30, Anion Gap 9.9, BUN 26 H, Creatinine 1.00, Estimated Creat Clear 46, Estimated GFR 57 L, Est GFR ( Amer) 68, Glucose 93 D, Calcium 8.5, Magnesium 1.9, Total Bilirubin 0.4, AST 21, ALT 11 L, Alkaline Phosphatase 57, Total Protein 6.7, Albumin 3.7, Globulin 3.0, Albumin/Globulin Ratio 1.2 I & O for Last 24 hours: Intake & Output 05/10/25 05/11/25 05/12/25 05/13/25 23:59 23:59 23:59 23:59 Intake Total 740 / 740 960 / 1200 590 / 590 Output Total 0 / 0 0 / 450 1300 / 1300 Balance 740 / 740 960 / 750 -710 / -710 Weight 46.947 kg 48.716 kg 49.169 kg Constitutional Constitutional: no acute distress, thin and cooperative *Routine HEENT Exam Head: Present normocephalic Eye: Present EOMI and PERRL ENT: Present mucous membranes moist *Routine Neck Exam Neck: Present supple; Absent lymphadenopathy *Routine Respiratory Exam Respiratory: Present CTA bilaterally; Absent rhonchi, wheezes or crackles *Routine Cardiovascular Exam Cardiovascular: Present RRR *Routine Abdominal Exam Abdominal: Present soft and normoactive bowel sounds; Absent tenderness *Routine Rectal Exam Patient deferred: visual exam *Routine Exam Patient deferred: external exam *Routine Extremities Exam Extremities: Absent cyanosis, clubbing or edema *Routine Skin Exam Skin: Present warm; Absent rash *Routine Neurological Exam Neurological: Present alert, oriented X3 and moving all extremities; Absent altered mental status Results Data Completed and Pending Labs on day of discharge: Labs from last 24 hours 05/13/25 05:38 WBC 10.5 D RBC 5.05 Hgb 14.7 Hct 46.2 MCV 91.5 MCH 29.1 MCHC 31.8 RDW 13.3 Plt Count 235 MPV 9.7 Neut % (Auto) 69.7 Lymph % (Auto) 19.9 [place] % (Auto) 6.4 Eos % (Auto) 2.8 Baso % (Auto) 0.7 Neut # (Auto) 7.3 Lymph # (Auto) 2.1 [place] # (Auto) 0.7 Eos # (Auto) 0.3 Baso # (Auto) 0.1 Sodium 134 L Potassium 3.9 Chloride 98 Carbon Dioxide 30 Anion Gap 9.9 BUN 26 H Creatinine 1.00 Estimated Creat Clear 46 Estimated GFR 57 L Est GFR ( Amer) 68 Glucose 93 D Calcium 8.5 Magnesium 1.9 Total Bilirubin 0.4 AST 21 ALT 11 L Alkaline Phosphatase 57 Total Protein 6.7 Albumin 3.7 Globulin 3.0 Albumin/Globulin Ratio 1.2 DS: Diagnosis Discharge Diagnosis (1) Acute non-ST elevation myocardial infarction (NSTEMI): Status: Acute Code(s): I21.4 - Non-ST elevation (NSTEMI) myocardial infarction (2) Takotsubo cardiomyopathy: Status: Acute Code(s): I51.81 - Takotsubo syndrome (3) Emphysema lung: Status: Acute Code(s): J43.9 - Emphysema, unspecified (4) Dyspnea on exertion: Status: Acute Code(s): R06.09 - Other forms of dyspnea (5) Atypical angina: Status: Acute Code(s): I20.89 - Other forms of angina pectoris (6) Smoker: Status: Acute Code(s): F17.200 - Nicotine dependence, unspecified, uncomplicated (7) COPD (chronic obstructive pulmonary disease): Status: Chronic Code(s): J44.9 - Chronic obstructive pulmonary disease, unspecified Meds Home Medications and Allergies Home Medications ?Medication ?Instructions ?Recorded ?Confirmed ?Type aspirin 81 mg tablet,delayed 81 mg PO DAILY 30 days #30 tabs 05/13/25 Rx release atorvastatin 40 mg tablet 40 mg PO HS 30 days #30 tabs 05/13/25 Rx losartan 25 mg tablet 12.5 mg (1/2 x 25 mg) PO DAILY 30 05/13/25 Rx days #15 tabs metoprolol succinate 25 mg 25 mg PO DAILY 30 days #30 tabs 05/13/25 Rx tablet,extended release 24 hr umeclidinium 62.5 mcg-vilanterol 1 inh inhalation DAILY 30 days #60 05/13/25 Rx 25 mcg/actuation powdr for ea inhalation (Anoro Ellipta) New Prescriptions to Start Prescriptions: aspirin Ning,Leroy atorvastatin Ning,Leroy losartan Ning,Leroy metoprolol succinate Ning,Leroy umeclidinium-vilanterol [Anoro Ellipta] Leroy Barclay Allergies Allergy/AdvReac Type Severity Reaction Status Date / Time No Known Allergies Allergy Verified 03/07/25 18:18 Discharge Plan Disposition Patient Disposition: Home, Self-Care Condition: Fair Follow up Plan Follow up with: Dora Burgess APRN [Nurse Practitioner, Cardiology] - 06/04/25 9:30 am Andreas Bravo MD [Physician, Pulmonology] - 2 weeks Prescriptions/Medication Reconciliation: New umeclidinium-vilanterol [Anoro Ellipta] 62.5-25 mcg/actuation Blister With Device 1 inh inhalation DAILY 30 Days Qty: 60 0RF atorvastatin 40 mg Tablet 40 mg PO HS 30 Days Qty: 30 0RF aspirin 81 mg Tablet,Delayed Release (Dr/Ec) 81 mg PO DAILY 30 Days Qty: 30 0RF metoprolol succinate 25 mg Tablet Extended Release 24 Hr 25 mg PO DAILY 30 Days Qty: 30 0RF losartan 25 mg tablet 12.5 mg PO DAILY 30 Days Qty: 15 0RF Problem Reconciliation Problems Reviewed?: Yes Patient Discharge Instructions ACTIVITY: Continue current activity DIET: continue same diet Patient Instructions: DI for Heart Attack, Stop Light COPD Print Language: French Providers Primary Care Provider: Provider,Referral Admit Provider: Jose Magana Attending Provider: Jose Magana
--- NOTE | 2025-05-13 10:32 | IR_ITS ---
APPROVED REPORT Patient Location: Inpatient Junior Architect: Hamilton Link, RT (R) PROCEDURES Left heart catheterization Left ventriculogram Selective coronary angiogram INDICATION Acute non-ST elevation myocardial infarction Informed consent was obtained prior to the procedure. COMPLICATIONS NONE Estimated Blood Loss: LESS THAN 10 ML TECHNIQUE One percent lidocaine used to anesthetize the right anterior aspect of the wrist. The right radial artery was accessed via the Seldinger technique. A 6 [place] sheath was placed in the right radial artery. 2.5 mg of Verapamil, 800 mcg of nitroglycerin, 1mg Lidocaine and 5000 U Heparin were given through the arterial sheath. The JL3 catheter was also used to perform left heart catheterization, left ventriculogram and selective coronary angiogram. At the end of the procedure the sheath was removed good hemostasis was achieved using Traclet band, patient was transferred to the postop holding area in stable condition. ANGIOGRAPHIC RESULTS The left main artery Normal The left anterior descending artery Is proximally normal with a 30% stenosis along a mid tortuous bend. [place] II flow is present from the mid to distal LAD The circumflex artery Large and dominant with 10% stenoses in the first obtuse marginal artery and a proximal 20 to 30% concentric stenosis in the second obtuse marginal artery The right coronary artery Large and nondominant with mild luminal regularities The RUSSELL ventriculogram reveals Mid anterior apical hypokinesis estimated ejection fraction 40% The left ventricular end-diastolic pressure 20 mmHg IMPRESSION Nonflow-limiting coronary artery disease as described above Slow flow down the mid to distal LAD most consistent with endothelial dysfunction Mid anterior apical defect likely resolving Takotsubo cardiomyopathy Mildly elevated LVEDP PLAN 1. Medical management for coronary artery disease 2. Supportive care for Takotsubo 3. Standard medical management for LV dysfunction 4. Recommend official echocardiogram Electronically signed by : Rehan Rodriguez MD 05/13/2025 13:06:57
--- NOTE | 2025-05-13 11:06 | P.CONCA_ITS ---
History of Present Illness History of Present Illness Consult date: 05/13/25 Requesting physician: Leroy Barclay Consult reason: chest pain and shortness of breath Chief complaint: Shortness of breath and chest pain History of present illness: This is a 59-year-old female who presented to the emergency department with complaints of shortness of breath and chest pain. She states that she has been short of breath for approximately a month with a productive cough for the last month. She states that she was at work on Tuesday when she started to have a sharp pain in her chest on the left side underneath her collarbone on inspiration and a dull pain in her abdomen diffusely. She states that the pain and shortness of breath persisted throughout the day and did get severe. She states that she did not have any nausea or vomiting or diaphoresis. She states that because of the severity of her symptoms she decided to come into the emergency department. The patient was found to have an elevated troponin cons istent with a non-STEMI. Her CT of the chest did reveal moderate emphysema as well. She also had an elevated BNP. The patient has been treated for a COPD exacerbation and was admitted to the hospital to have left cardiac catheterization on Tuesday due to her non-STEMI. She states that her chest pain and shortness of breath have both improved since being in the hospital and she is feeling much better. She denies any fever, chills, nausea, vomiting, diarrhea, PND orthopnea. [facility] Disclaimer: The information contained in this section may have been updated after the patient was seen, as this information can be updated by other users. Medical History (Updated 05/13/25 @ 11:10 by Dora Burgess APRN) Smoker Emphysema lung Acute non-ST elevation myocardial infarction (NSTEMI) COPD exacerbation Tobacco abuse Atypical angina Dyspnea on exertion Surgical History (Updated 05/11/25 @ 12:17 by Amari Becerra RN) History of cholecystectomy Family History (Updated 05/11/25 @ 12:17 by Amari Becerra RN) Other Lung cancer Social History (Updated 05/11/25 @ 12:19 by Amari Becerra RN) Smoking Status: Current every day smoker tobacco type: cigarettes packs per day: 1 alcohol intake: never current occupational status: employed and other Travel in the last 8 weeks?: None Have you lived/traveled outside [place] in past 30 days?: No Contact w/someone who lives/traveled outside [place] past 30 days?: No Exposure to someone with infectious disease in past 14 days?: No Do you have a fever (greater than 100.4 F or 38 C)?: No Have you tested positive for COVID-19?: No Exposed to someone with COVID-19 in past 14 days?: No Do you have a sore throat?: No Do you have a cough?: Yes Do you have any weakness?: No Do you have any diarrhea?: No Are you experiencing any unusual bleeding?: No Do you have any muscle aches/pain?: No Do you have any abdominal pain?: No Are you experiencing loss of taste or smell?: No Review of Systems Review of Systems Review of systems:: pertinent systems reviewed and negative unless documented below Constitutional Constitutional: Reports system reviewed and no additional complaints, except as documented and Reports fatigue Eyes Eyes: Reports system reviewed and no additional complaints, except as documented ENT Ears, Nose, Mouth, and Throat: Reports system reviewed and no additional complaints, except as documented *Cardiovascular Cardiovascular: Reports system reviewed and no additional complaints, except as documented, Reports chest pain, Reports dyspnea, Reports dyspnea on exertion and Reports radiating jaw, neck or arm pain *Respiratory Respiratory: Reports system reviewed and no additional complaints, except as documented, Reports chest congestion, Reports cough, Reports dyspnea and Reports dyspnea on exertion *Gastrointestinal Gastrointestinal: Reports system reviewed and no additional complaints, except as documented *Genitourinary Genitourinary: Reports system reviewed and no additional complaints, except as documented *Musculoskeletal Musculoskeletal: Reports system reviewed and no additional complaints, except as documented Integumentary/Breasts Skin/Breast: Reports system reviewed and no additional complaints, except as documented *Neurologic Neurologic: Reports system reviewed and no additional complaints, except as documented Psychiatric Psychiatric: Reports system reviewed and no additional complaints, except as documented Endocrine Endocrine: Reports system reviewed and no additional complaints, except as documented and Reports fatigue Hematologic/Lymphatic Hematologic/Lymphatic: Reports system reviewed and no additional complaints, except as documented Allergic/Immunologic Allergic/Immunologic: Reports system reviewed and no additional complaints, except as documented Exam Data for Last 24 hours Vital signs and Labs for Last 24 Hours: Temp Pulse Resp BP Pulse Ox O2 Del Method 97.7 F 77 12 138/85 92 L Room Air 05/13/25 07:53 05/13/25 07:53 05/13/25 07:53 05/13/25 07:53 05/13/25 07:53 05/13/25 10:47 Laboratory Results - last 24 hr 05/13/25 05:38: WBC 10.5 D, RBC 5.05, Hgb 14.7, Hct 46.2, MCV 91.5, MCH 29.1, MCHC 31.8, RDW 13.3, Plt Count 235, MPV 9.7, Neut % (Auto) 69.7, Lymph % (Auto) 19.9, [place] % (Auto) 6.4, Eos % (Auto) 2.8, Baso % (Auto) 0.7, Neut # (Auto) 7.3, Lymph # (Auto) 2.1, [place] # (Auto) 0.7, Eos # (Auto) 0.3, Baso # (Auto) 0.1, Sodium 134 L, Potassium 3.9, Chloride 98, Carbon Dioxide 30, Anion Gap 9.9, BUN 26 H, Creatinine 1.00, Estimated Creat Clear 46, Estimated GFR 57 L, Est GFR ( Amer) 68, Glucose 93 D, Calcium 8.5, Magnesium 1.9, Total Bilirubin 0.4, AST 21, ALT 11 L, Alkaline Phosphatase 57, Total Protein 6.7, Albumin 3.7, Globulin 3.0, Albumin/Globulin Ratio 1.2 I & O for Last 24 hours: Intake & Output 05/10/25 05/11/25 05/12/25 05/13/25 23:59 23:59 23:59 23:59 Intake Total 740 / 740 960 / 1200 590 / 590 Output Total 0 / 0 0 / 450 1300 / 1300 Balance 740 / 740 960 / 750 -710 / -710 Weight 103 lb 8 oz 107 lb 6.4 oz 108 lb 6.4 oz Constitutional Constitutional: no acute distress and average body habitus *Routine HEENT Exam Head: Present normocephalic and atraumatic ENT: Present mucous membranes moist *Routine Neck Exam Neck: Present supple, full ROM and normal carotid upstroke; Absent JVD, carotid bruit or lymphadenopathy *Routine Respiratory Exam Respiratory: Present CTA bilaterally, normal respiratory effort, able to speak in complete sentences and symmetric chest movement *Routine Cardiovascular Exam Cardiovascular: Present RRR, Normal S1 and Normal S2; Absent murmur or gallop *Routine Abdominal Exam Abdominal: Present soft and normoactive bowel sounds; Absent tenderness, distended or organomegaly *Routine Extremities Exam Extremities: Present full ROM, pulses intact and normal capillary refill; Absent cyanosis, clubbing or edema *Routine Skin Exam Skin: Present intact and warm; Absent erythema *Routine Neurological Exam Neurological: Present alert, oriented X3 and CN II-XII intact; Absent sensory deficit or motor deficit Routine Psychiatric Exam Psychiatric: Present normal affect Meds Home Medications and Allergies Home Medications ?Medication ?Instructions ?Recorded ?Confirmed ?Type No Known Home Medications 05/12/2503/29 History New Prescriptions to Start Prescriptions: Allergies Allergy/AdvReac Type Severity Reaction Status Date / Time No Known Allergies Allergy Verified 03/07/25 18:18 Assessment and Plan *Assessment and plan (1) Acute non-ST elevation myocardial infarction (NSTEMI): Status: Acute Category: Medical Code(s): I21.4 - Non-ST elevation (NSTEMI) myocardial infarction (2) Atypical angina: Status: Acute Category: Medical Code(s): I20.89 - Other forms of angina pectoris (3) Dyspnea on exertion: Status: Acute Category: Medical Code(s): R06.09 - Other forms of dyspnea (4) Emphysema lung: Status: Acute Qualifiers: Emphysema type: unspecified Qualified Code(s): J43.9 - Emphysema, unspecified Category: Medical Code(s): J43.9 - Emphysema, unspecified (5) Tobacco abuse: Status: Acute Category: Medical Code(s): Z72.0 - Tobacco use (6) COPD exacerbation: Status: Acute Category: Medical Code(s): J44.1 - Chronic obstructive pulmonary disease with (acute) exacerbation Plan Plan: 1. The patient was admitted to the hospital and found to have a non-STEMI. Will plan to proceed with left cardiac catheterization today to evaluate coronary artery disease due to her non-STEMI and atypical angina. 2. The patient has been educated the risk and benefits of proceeding with left cardiac catheterization. Patient verbalizes understanding and is agreeable in proceeding with the procedure. 3. The patient will be n.p.o. in preparation for left cardiac catheterization. 4. Her blood pressure is well-controlled. 5. Continue aspirin for her non-STEMI. 6. Continue metoprolol for the non-STEMI. 7. Her LDL goal is less than 55. Her LDL is 117. She has been started on a statin. 8. Her BNP was elevated at 7000. Echocardiogram is currently pending. 9. The patient does have moderate COPD. Pulmonology has been consulted. Will defer. 10. Further recommendations will be made pending the patient's response to treatment and the results of her left cardiac catheterization today. Thank you for the opportunity to help participate in the care of this patient. All recommendations and orders are per Dr. Montes.
[2025-05-13] MEDS: VERAPAMIL 2.5MG/ML 2ML VIAL 2.5 MG IV (11:42)
[2025-05-13] MEDS: HEPARIN 1,000 UNITS/500ML NS (CATH LAB) 3000 UNIT IV (11:42)
[2025-05-13] MEDS: HEPARIN 1,000 UNITS/ML 10ML VIAL (CATH LAB) 5000 UNIT IV (11:42)
[2025-05-13] MEDS: LIDOCAINE 1% 10ML MDV 10 ML IJ (11:42)
[2025-05-13] MEDS: 0.9 % SODIUM CHLORIDE 500 ML 25 ML IV (11:43)
[2025-05-13] MEDS: NITROGLYCERIN 800MCG/8ML SYR (CATH LAB) 800 MCG IA (11:43)
[2025-05-13] MEDS: FENTANYL 100MCG/2ML VIAL 50 MCG IV (11:44)
[2025-05-13] MEDS: MIDAZOLAM HCL 1MG/ML 5ML VIAL 1 MG IV (11:44)
[2025-05-13] MEDS: IOPAMIDOL-370 (76%);100ML BOTTLE 50 ML IV (13:20)
[2025-05-13] MEDS: UMECLIDINIUM/VILANTEROL 62.5/25MCG INHALER 1 PUFF IH (15:02)
--- NOTE | 2025-05-14 10:58 | CARE MANAGER ---
Spoke with patient regarding recent discharge. Patient stated that she has started all new medication and plans to call to schedule appt with Dr. Bravo. We went over appt information for cardiology that was scheduled prior to discharge. No concerns voiced at time of call.
== END 2025-05-13 18:25 | disposition home or self-care (01) ==
LOC: ER 05:55 → 2ND 08:25
PROVIDERS: Internal Medicine; Admitting Provider Student in an Organized Health Care Education/Training Program; Emergency Provider Emergency Medicine; Visit Provider Student in an Organized Health Care Education/Training Program
PROC: 4A023N7 Measurement of Cardiac Sampling and Pressure, Left Heart, Percutaneous Approach (ICD-10-PCS; CPT 93452; principal; 2025-05-13 11:00)
DX: I21.4 Non-ST elevation (NSTEMI) myocardial infarction (principal); I51.81 Takotsubo syndrome; F17.210 Nicotine dependence, cigarettes, uncomplicated; J43.2 Centrilobular emphysema; E78.5 Hyperlipidemia, unspecified; I50.20 Unspecified systolic (congestive) heart failure; E80.6 Other disorders of bilirubin metabolism; K44.9 Diaphragmatic hernia without obstruction or gangrene; Z80.1 Family history of malignant neoplasm of trachea, bronchus and lung; Z90.49 Acquired absence of other specified parts of digestive tract
CPT/HCPCS: 0223U; 36415; 71275; 80053; 80061; 82803; 83036; 83690; 83735; 83880; 84439; 84443; 84484; 85025; 85610; 86803; 87389; 93005; 93306; 93458; 94640; 96372; 96374; 96375; 99152; 99285; C1725; C1769; G0378; J1200; J1644; J1650; J1938; J2003; J2250; J2919; J3010; J7040; Q9967